=== PATIENT | female | born 1945 | race Caucasian/White ===

== ENCOUNTER 2017-10-05 11:50 | Outpatient (CLI) | payer MEDICARE ==
[2017-10-05 13:22] LABS: #Eosinphils 0.4 thou/uL (0.0-0.7); #Lymphocytes 1.6 thou/uL (1.20-3.40); #Monocytes 0.7 thou/uL (0.11-0.59); #Neutrophils 7.9 thou/uL (1.40-6.50); %Basophils 0.3 % (0.0-1.0); %Eosinophils 3.9 % (0.0-10.0); %Lymphocytes 15.3 % (21.0-51.0); %Monocytes 6.1 % (0.0-10.0); %Neutrophils 74.4 % (42.0-75.0); Hemoglobin 11.6 g/dL (12.0-16.0); Mean Corpuscular HGB CONC 31.8 g/dL (32.0-36.0); Mean Corpuscular Hemoglobin 27.2 pg (27.0-31.0); Mean Corpuscular Volume 85.3 fl (81.0-99.0); Mean Platelet Volume 7.7 fL (7.4-10.4); Platelet Count 391 thou/uL (130-400); RBC Distribution Width 15.2 % (11.5-14.5); Red Blood Cell (RBC) Count 4.29 mill/uL (4.20-5.40); White Blood Cell (WBC) Count 10.6 thou/uL (4.8-10.8)
[2017-10-05 13:43] LABS: Anion Gap 14 mmol/L (10-20); BUN (Urea Nitrogen) 26 mg/dL (9.8-20.1); Calc. Creatinine Clearance 0 mL/min (70-130); Calcium 8.6 mg/dL (7.8-10.44); Carbon Dioxide 27 mmol/L (23-31); Chloride 100 mmol/L (98-107); Estimated GFR-MDRD 32; Glucose 216 mg/dL (83-110); Potassium 4.2 mmol/L (3.5-5.1); Sodium 137 mmol/L (136-145)
--- NOTE | 2017-10-05 14:08 | RAD ---
CHEST PA AND LATERAL: HISTORY: A 72-year-old female for preoperative evaluation. FINDINGS: There is some anterior right hemidiaphragm elevation. Healed right rib fractures. Mild linear stran ding in the lung bases which does not appear significantly changed from a prior CT angio chest . IMPRESSION: Mild stranding in the lung bases. Healed right rib fractures. No confluent pneumonia, overt edema, pleural effusion, or other acute process. POS: CHARISSE
== END 2017-10-05 11:51 | disposition home or self-care (01) ==
LOC: LABBT 11:50
PROVIDERS: ATTEND Specialist
DX: Z01.818 Encounter for other preprocedural examination (principal); Z01.810 Encounter for preprocedural cardiovascular examination; Z01.812 Encounter for preprocedural laboratory examination; C50.911 Malignant neoplasm of unspecified site of right female breast
CPT/HCPCS: 71046; 80048; 85025; 93005; 93010

== ENCOUNTER 2017-10-09 07:13 | Day surgery (SDC) | payer MEDICARE, OTHER ==
[2017-10-05 11:57] VITALS: BMI 40.6
--- NOTE | 2017-10-09 09:45 | NM ---
RIGHT BREAST LYMPHOSCINTIGRAPHY: Date: 10/09/17 HISTORY: Malignant neoplasm of unspecified site of right female breast. FINDINGS: Right breast lymphoscintigraphy was performed following the right periareolar injection of 400 microc uries technetium-99m filtered sulfur colloid in divided doses. Focally increased uptake is seen in the right axillary lymph node. No tracer visualization is noted i n the internal mammary or axillary lymph nodes. IMPRESSION: Spivey lymph node in the right axilla. POS: CODI
[2017-10-09] MEDS ORDERED: CEFAZOLIN/Water 2 GM/20 ML SYRINGE ONE (11:54)
[2017-10-09] MEDS ORDERED: Fentanyl 100 MCG/2 ML VIAL ONE (14:02)
[2017-10-09] MEDS ORDERED: Isosulfan Blue 50 MG/5 ML VIAL ONE (14:08)
[2017-10-09] MEDS ORDERED: Bupivacaine 0.25% HCL 30 ML VIAL ONE (14:08)
[2017-10-09] MEDS ORDERED: Lidocaine 2% w/Epinephrine 1:200K 20 ML VIAL ONE (14:14)
[2017-10-09] MEDS ORDERED: PHENYLEPHRINE-NS 100 MCG/ML 10 ML SYRINGE ONE ×2 (15:58→16:21)
[2017-10-09] MEDS ORDERED: Ondansetron HCl/PF 4 MG/2 ML Vial ONE (16:21)
[2017-10-09] MEDS ORDERED: ePHEDrine/0.9% NaCl/PF SYRINGE 50 mg/10 ml ONE (16:21)
[2017-10-09] MEDS ORDERED: Dexamethasone 20 MG/5 ML VIAL ONE (16:21)
[2017-10-09] MEDS ORDERED: PROPOFOL 200 MG/20 ML VIAL ONE (16:21)
[2017-10-09] MEDS ORDERED: Lidocaine 1% PF 5 ML VIAL ONE (16:21)
--- NOTE | 2017-10-10 10:17 | MMO ---
SPECIMEN RADIOGRAPH: HISTORY: A 72-year-old female with a right breast mass. There is a breast specimen with a hook wire in place. There is a spiculated-appearing mass within the specimen. There is also a small post biopsy clip w ithin the specimen. IMPRESSION: Specimen contains a spiculated mass, hooked wire, and a previously placed localization device. POS: CODI
--- NOTE | 2017-10-10 12:55 | OP ---
DATE OF PROCEDURE: 10/09/2017 PREOPERATIVE DIAGNOSIS: Right breast cancer. POSTOPERATIVE DIAGNOSIS: Right breast cancer. OPERATION PERFORMED: Ultrasound guided localizing needle placement, needle localized right breast nevin mpectomy, right axillary sentinel lymph node mapping, right axillary sentinel lymph node biopsy. SURGEON: Dr. Sharath Landaverde. ANESTHESIA: General endotracheal. INDICATIONS: The patient is a 72-year-old white female. Recent imaging studies revealed a dominant mass in her upper right breast. This was biopsy proven, to be invasive ductal carcinoma. She is john en to the operating room at this time for lumpectomy with sentinel lymph node biopsy. Lymphoscintigr aphy was obtained preoperatively identifying sentinel lymph nodes within the right axilla. DESCRIPTION OF OPERATION: Informed consent was obtained. The patient was taken to the operating destiney m where general endotracheal anesthesia was obtained with the patient in the supine position. The br east was infiltrated with 3 mL of isosulfan blue in the periareolar subdermal tissue and the area was massaged for five minutes. The breast was then prepped with ChloraPrep and draped in sterile fashio n to include the axilla. Attention was turned first to the axilla. Local anesthetic was infiltrated using 0.25% Marcaine with epinephrine and a transverse low axillary incision was created. Dissection was carried through skin and subcutaneous tissue. Superficial axillary fascia was incised. Neoprobe was utilized to help id entify areas of maximum radio intensity. Blue dye was seen entering the axilla as well. I was able to clearly identify 3 separate sentinel lymph nodes, each of which had substantial radioactivity and some degree of blue dye. These were each dissected and all investing lymphatics divided between clam ps and 3-0 silk ties. Hemostasis was meticulous. The wound was closed in layers with 3-0 and 4-0 Mo nocryl and Dermabond was placed externally. Attention was then turned to the breast. Ultrasound was utilized to localize the obvious breast canc er in the upper right breast. The location of the malignancy was mapped on the overlying skin. Need le localization was then performed using the Kopans wire. The wire was passed through the lesion in a medial to lateral fashion. Additional local anesthetic was infiltrated and a transverse incision was created on the breast immed iately overlying the malignancy and to include the localizing wire entry site. Dissection was jyoti d through skin and subcutaneous tissue and was carried over a centimeter down into the breast. The m alignancy was recognized to be relatively deep within the breast. I then raised flaps medially, supe riorly, and inferiorly. I dissected down medial to the lesion based upon the needle entry site and andreia gallegos carried the plane posterior to the malignancy. I obtained a wide margin of normal tissue around the malignancy. The specimen was then removed from the breast and oriented with localizing sutures. Specimen mammography was obtained. This revealed that the obvious malignancy appeared to have a rim of appropriate tissue around it. The biopsy clip was within the specimen as well. Meticulous hemostasis was obtained within the wound. It was closed in layers with 3-0 and 4-0 Monocr yl suture. Additional local anesthetic was infiltrated during closure. Dermabond was placed externa lly. There were no complications. Patient tolerated the procedure well and was taken to recovery ro in stable condition.
== END 2017-10-09 18:05 | disposition home or self-care (01) ==
LOC: SDC 07:13
PROVIDERS: ATTEND Specialist
PROC: 0HBT0ZZ Excision of Right Breast, Open Approach (ICD-10-PCS; principal; 2017-10-09)
PROC: 07B50ZX Excision of Right Axillary Lymphatic, Open Approach, Diagnostic (ICD-10-PCS; 2017-10-09)
DX: C50.811 Malignant neoplasm of overlapping sites of right female breast (principal); E78.5 Hyperlipidemia, unspecified; I25.10 Atherosclerotic heart disease of native coronary artery without angina pectoris; E78.00 Pure hypercholesterolemia, unspecified; K21.9 Gastro-esophageal reflux disease without esophagitis; J44.9 Chronic obstructive pulmonary disease, unspecified; G47.33 Obstructive sleep apnea (adult) (pediatric); I12.9 Hypertensive chronic kidney disease with stage 1 through stage 4 chronic kidney disease, or unspecified chronic kidney disease; E11.22 Type 2 diabetes mellitus with diabetic chronic kidney disease; N18.9 Chronic kidney disease, unspecified; E66.9 Obesity, unspecified; Z68.41 Body mass index [BMI] 40.0-44.9, adult; Z17.0 Estrogen receptor positive status [ER+]; Z82.49 Family history of ischemic heart disease and other diseases of the circulatory system; Z88.2 Allergy status to sulfonamides; Z88.8 Allergy status to other drugs, medicaments and biological substances; Z91.018 Allergy to other foods; Z79.82 Long term (current) use of aspirin; Z79.02 Long term (current) use of antithrombotics/antiplatelets; Z79.4 Long term (current) use of insulin; Z79.899 Other long term (current) drug therapy; Z95.5 Presence of coronary angioplasty implant and graft; Z90.49 Acquired absence of other specified parts of digestive tract; Z90.710 Acquired absence of both cervix and uterus; Z90.722 Acquired absence of ovaries, bilateral; Z98.41 Cataract extraction status, right eye; Z98.890 Other specified postprocedural states
CPT/HCPCS: 19301; 38525; 76098; 78195; 82962; 88307; 88331; 88334; 88342; A9541; Q9968; 36416; J0131; J1100; J2001; J2370; J2405; J2704; J3010; J7050; S0020

== ENCOUNTER 2018-01-07 09:55 | Outpatient (CLI) | payer MEDICARE | END 2018-01-07 09:56 | disposition home or self-care (01) | LOC: BICMAMMO 09:55 | PROVIDERS: ATTEND Internal Medicine Hematology & Oncology | DX: Z13.820 Encounter for screening for osteoporosis (principal); Z78.0 Asymptomatic menopausal state | CPT/HCPCS: 77080 ==

== ENCOUNTER 2018-11-12 09:00 | Outpatient (CLI) | payer MEDICARE ==
--- NOTE | 2018-11-13 15:32 | MMO ---
MAMMO Bilat Diag DDI+BRI. CLINICAL HISTORY: Patient is 73 years old and is seen for diagnostic exam. The patient has the following family history of breast cancer: sister. The patient has a history of malignant (generic) in the right breast in 2017. The patient has a history of right Lumpectomy in 2017 - malignant - REMOVED 3 LYMPH NODES. VIEWS: The views performed were: bilateral craniocaudal with tomosynthesis; bilateral mediolateral oblique with tomosynthesis; and bilateral mediolateral. FILMS COMPARED: The present examination has been compared to a prior imaging study performed at MAMMOGRAM FINDINGS: There are scattered fibroglandular densities. Finding 1: Benign calcifications are noted bilaterally. No suspicious calcifications or masses are seen. Finding 2: There is a post-surgical scar seen in the right breast. IMPRESSION: ALL ABOVE FINDINGS ARE BENIGN. A ROUTINE FOLLOW-UP MAMMOGRAM IN 1 YEAR IS RECOMMENDED. THE RESULTS OF THIS EXAM WERE SENT TO THE PATIENT. ACR BI-RADS Category 2 - Benign finding MAMMOGRAPHY NOTE: 1. A negative mammogram report should not delay a biopsy if a dominant of clinically suspicious mass is present. 2. Approximately 10% to 15% of breast cancers are not detected by mammography. 3. Adenosis and dense breasts may obscure an underlying neoplasm.
== END 2018-11-12 09:01 | disposition home or self-care (01) ==
LOC: BICMAMMO 09:00
PROVIDERS: ATTEND Internal Medicine Hematology & Oncology
DX: Z08 Encounter for follow-up examination after completed treatment for malignant neoplasm (principal)
CPT/HCPCS: 77066; G0279

== ENCOUNTER 2019-08-14 12:52 | Inpatient (IN) | payer MEDICARE ==
[2019-08-14 16:29] VITALS: BMI 39.5
[2019-08-14 17:47] LABS: Troponin I 0.028 ng/mL (< 0.028)
--- NOTE | 2019-08-14 18:15 | PDOC.HHP ---
Hospitalist HPI - History of Present Illness back pain History of Present Illness: This is a 74 year old female with past medical history of breast cancer s/p lumpectomy and axillary lymph node dissection few years ago on letrazole, hypertension, diabetes, CAD s/p 3 stents who presented to the emergency room with back pain. The patient states on Sunday she was getting out of her truck and after supper started experiencing a sharp pain in her back. It proceeded to get worst over the past few days and was making her short of breath from the severe pain so she came to the hospital. Her pain is relieved with laying on her right side and worsened with laying on her back or on her left side. No association with walking. SHe says over the past few months she has been having tingling in her hands and her legs whenever she bends in certain positions. She denies chest pain, diaphoresis, fevers, chills, runny nose, sore throat, sick contacts, recent travel history. The patient states that she took a few aspirin at home without relief. She has never smoked. She has three stents in her heart, says her last stress test a few years ago was normal. ED Course: Upon arrival to the ER, the patient had a BP of 184/88. Temp was 98.5, oxygen saturation was normal, HR 86. The patient had a CTA chest done which showed no pneumonia and no PE. The patient was given nitro patch and aspirin 324. She states it helped some but the pain is now starting to come back again. She reports compliance with all of her medications. BP down to 140 this morning. Hospitalist ROS - Review of Systems Constitutional: denies: fever, chills ENT: denies: ear discharge, mouth pain Respiratory: denies: cough, dry Cardiovascular: denies: chest pain, palpitations Gastrointestinal: denies: nausea, vomiting, abdominal pain, diarrhea, constipation Genitourinary: denies: dysuria, frequency, incontinence, hematuria Musculoskeletal: reports: neck pain (mild) Skin: denies: rash, lesions, betty - Medication Medications: Aspirin 81 mg daily Letrazole Levemir 45 units SC qhs Novolog 12 units SC TID Lipitor 80 mg daily Plavix 75 mg daily Metoprolol 100 mg po bid Amlodipine 5 mg daily HCTZ 25 mg daily Metformin 500 mg bid Nexium 40 mg daily Hospitalist History - Past Medical History Cardiac: reports: CAD (s/p 3 stents), HTN Endocrine: reports: Diabetes Other Medical History: Breast Cancer in remission - Past Surgical History Other Surgical History: s/p lumpectomy and axillary lymph node dissection in 2015 Cataract surgery Hysterectomy cholecystectomy - Family History Other Family History: Sister had cancer Father had diabetes Mother had hypertension - Social History Smoking Status: Never smoker Alcohol: reports: None Drugs: reports: none Living Situation: Alone - Exam General Appearance: NAD, awake alert Eye: PERRL, anicteric sclera ENT: normocephalic atraumatic, no oropharyngeal lesions Neck: supple, symmetric, no JVD, no thyromegaly Heart: RRR, no murmur, no gallops, no rubs Respiratory: CTAB, no wheezes, no rales, no ronchi Gastrointestinal: soft, non-tender, non-distended, normal bowel sounds, no palpable masses, no hepatomegaly, no splenomegaly, no bruit Extremities: no cyanosis, no clubbing, no edema Skin: normal turgor, no lesions, no rashes Neurological: cranial nerve grossly intact, normal sensation to touch, no focal deficits, no new deficit Musculoskeletal: normal tone, normal strength, no muscle wasting Musculoskeletal - other findings: spinal tenderness in thoracic spine Psychiatric: normal affect, normal behavior, A&O x 3, oriented to person Hospitalist Results - Labs Lab results: Troponin I 0.028 ng/mL (< 0.028) 08/14/19 17:09 - EKG Interpretation EKG: Normal sinus rhythm Nonspecific T wave abnormality Hospitalist H&P A/P - Plan Plan: This is a 74 year old female with a past medical history of CAD s/p 3 stents, breast cancer s/p lumpectomy, type II diabetes, hypertension, who presented to the emergency room with worsening back pain Back pain - EKG showed normal sinus rhythm, troponin negative x 2 , check one more. Monitor on telemetry - will order lidocaine patch, tylenol prn . CTA negative for PE - check MRI cervical, thoracic, lumbar spine given history of breast cancer - PT evaluation Leukocytosis - WBC of 14.3, CTA negative for PE - check UA - check MRI of spine Hypertensive urgency - BP 180 - continue amlodipine, HCTZ, imdur - may be from pain CAD s/p 3 stents - continue aspirin, plavix, ranexa, imdur 30 mg daily Breast cancer s/p lumpectomy and radiation - continue letrazole Type II diabetes - sliding scale insulin - diabetic diet - hold metformin for now GERD - continue nexium CKD - creatinine 1.3, at baseline Anemia - Hb 11, will recheck CBC tomorrow DVT prophylaxis: Code status: undecided but full code for now
[2019-08-14] MEDS ORDERED: Dextrose 5% in Water 1,000 ML IV PRN (18:29)
[2019-08-14] MEDS ORDERED: Dextrose 50% Abboject 50 ML SYRINGE SLOW IVP PRN (18:29)
[2019-08-14] MEDS ORDERED: Nitroglycerin 0.4 MG TAB (25 Tab Bottle) SL SCH (18:30)
[2019-08-14] MEDS: Lidocaine 5% Patch TD SCH (18:43)
[2019-08-14 19:54] LABS: Bilirubin Negative (Negative); Blood, Urine Trace (Negative); Clarity Clear (Clear); Glucose, Urine (Dipstick) Normal (Negative); Leukocyte Negative Leu/uL (Negative); Nitrite Negative (Negative); Protein, Urine (Dipstick) 300 mg/dL (Neg-Trace); Urobilinogen Normal mg/dL (Less than 2)
[2019-08-14] MEDS: Insulin Glargine 45 UNITS in Pre-Filled Syringe 1 EACH SC SCH (20:14)
[2019-08-14] MEDS: Atorvastatin Calcium 40 MG TAB PO SCH (20:17)
[2019-08-14] MEDS: Metoprolol Tartrate 100 MG TAB PO SCH (20:17)
[2019-08-14 20:26] LABS: Troponin I 0.031 ng/mL (< 0.028)
[2019-08-14] MEDS ORDERED: Melatonin 3 MG TAB PO PRN (20:27)
[2019-08-14] MEDS ORDERED: Mag-Al 1200 mg/1200 mg/30 ML UDCUP PO PRN (20:36)
[2019-08-14] MEDS ORDERED: Non-Formulary Item 1 EACH (Insulin Detemir 100 Units/Ml [Levemir] 45 UNIT) SQ SCH (21:00)
[2019-08-14] MEDS: traMADol HCl 50 MG TAB PO PRN (21:39)
[2019-08-15] MEDS: Acetaminophen 325 MG TAB PO PRN ×2 (00:10→19:53)
[2019-08-15] MEDS: Lidocaine Patch Removal TOP SCH (06:25)
[2019-08-15] MEDS: Aspirin 325 mg Enteric Coated Tablet PO SCH (08:52)
[2019-08-15] MEDS: traMADol HCl 50 MG TAB PO PRN ×2 (08:52→19:52)
[2019-08-15] MEDS: Clopidogrel Bisulfate 75 MG TAB PO SCH (08:53)
[2019-08-15] MEDS: Metoprolol Tartrate 100 MG TAB PO SCH ×2 (08:53→21:29)
[2019-08-15] MEDS: Isosorbide Mononitrate (ER) 30 MG TAB PO SCH (08:53)
[2019-08-15] MEDS: Amlodipine 5 MG TAB PO SCH (08:53)
[2019-08-15] MEDS ORDERED: Hydrochlorothiazide 25 MG TAB PO SCH (09:00)
--- NOTE | 2019-08-15 12:26 | CON ---
DATE OF CONSULTATION: HISTORY OF PRESENT ILLNESS: The patient is a 74-year-old woman with a history of coronary artery disease, who presents for evaluation of back discomfort. The patient has a long history of coronary artery disease. She has previously undergone PTCA and stent placed in the LAD. The patient underwent a repeat cardiac catheterization in September of 2012. She was found to have moderate CAD with 60 % restenoses. She also had diffuse coronary artery disease. The patient has subsequently been on medical therapy. She has been doing well until three days prior to admission, developed severe onset of back discomfort that radiated to her right lower ribs. The patient states that the chest and back pain has been persistent. It is clearly worse when she lies on her side. The patient states that the pain is improved by sitting up. The patient states that she took several pain medications without relief and presented to the emergency room. The patient denied having any chest discomfort. The patient reports being dyspneic. PAST MEDICAL HISTORY: 1. Coronary artery disease. 2. Diabetes mellitus. 3. Hypertension. 4. Dyslipidemia. 5. GE reflux. 6. COPD. PAST SURGICAL HISTORY: Cholecystectomy, hysterectomy, and cataract surgery. FAMILY HISTORY: There is a strong family history of coronary artery disease. ALLERGIES: SULFA AND PROMETHAZINE. SOCIAL HISTORY: Nonsmoker. REVIEW OF SYSTEMS: Ten-point system otherwise unremarkable. PHYSICAL EXAMINATION: GENERAL: This is an obese woman, in mild distress. VITAL SIGNS: Blood pressure 132/58. NECK: No jugular venous distention. LUNGS: Clear to auscultation. HEART: Regular rate and rhythm. Normal S1 and S2. ABDOMEN: Distended. EXTREMITIES: Show no edema. VASCULAR: Radial pulses are 2+. LABORATORY DATA: white blood cell count is 14.3, hemoglobin 11.8, hematocrit 39.5, and platelets are 407. Sodium was 135, potassium 3.9, chloride 96, bicarbonate 27, BUN 19, creatinine 1.3, and glucose 129. BNP is 185. Troponin 0.031. IMAGING DATA: EKG normal sinus rhythm, nonspecific T-wave abnormality. IMPRESSION: 1. Back pain. 2. History of percutaneous transluminal coronary angioplasty and stent placed to the left anterior descending artery. 3. Diabetes mellitus. 4. Hypertension. 5. Dyslipidemia. PLAN: This patient presents with back discomfort. She has had persistent pain for the past 3 days. There is no evidence of myocardial infarction. The patient is to undergo an MRI scan of her back. We will follow this patient with you. Further recommendation to follow. Job ID: [id number] MTDD
--- NOTE | 2019-08-15 13:52 | CT ---
CT CERVICAL SPINE: Axial tomograms were obtained with multiplanar reconstruction. INDICATION: Neck pain. Upper extremity radiculopathy. History of breast cancer. FINDINGS: The cervical vertebrae maintain height and alignment. Moderate degenerative changes are noted. Ther e is also disk space at C5-6, C6-7, and C7-T1. Posterior spondylosis is prominent at C4-5, C5-6, and C6-7. Anterior osteophytes are prominent at these levels. No evidence of acute fracture. At C2-3, mild disk bulge flattens the anterior thecal sac. At C3-4, disk bulge and spondylosis efface the anterior subarachnoid space. Mild left foraminal encr oachment due to hypertrophic change. At C4-5, prominent posterior spondylosis impinges on and mildly compresses the anterior cord. At C5-6, posterior disk bulge and spondylosis mildly impinge on the anterior cord. Bilateral foramin al narrowing due to hypertrophic change. At C6-7, spondylitic changes abut the anterior cord. Bilateral foraminal stenosis due to facet and uncinate hypertrophy. IMPRESSION: There are degenerative changes of the cervical spine as described. POS: C
--- NOTE | 2019-08-15 13:54 | CT ---
CT THORACIC SPINE: Date: 08/15/19 INDICATION: Back pain. History of breast cancer. FINDINGS: Thoracic vertebra maintain height and alignment. Moderate degenerative changes are noted with anterio r and lateral osteophytes throughout. There are lateral bridging osteophytes in the mid and lower tho racic spine. No evidence of acute compression deformity. No lytic or blastic process identified. No e vidence of disc protrusion. Thoracic spinal canal is suboptimally evaluated on CT. There is no eviden ce of central canal stenosis. There is facet hypertrophy at several levels which does appear to produ ce some foraminal encroachment on the right at T5-6 and bilaterally at T6-T7, T7-T8, and T8-T9. IMPRESSION: There are moderate degenerative changes of the thoracic spine as described. POS: C
--- NOTE | 2019-08-15 14:08 | CT ---
CT LUMBAR SPINE WITHOUT CONTRAST: Date: 08/15/19 INDICATION: Back pain. Radiculopathy. History of breast cancer. FINDINGS: The lumbar vertebra maintain height and alignment. No compression deformity. No lytic or blastic proc ess. There are moderate degenerative changes with hypertrophic spurring and posterior facet hypertrophy. T he disc spaces are preserved. At L1-2, broad based disc bulge flattens the thecal sac. Mild central canal stenosis. At L2-3, diffuse disc bulge flattens the thecal sac. Mild central canal stenosis. At L3-4, there is mild diffuse disc bulge. Facet and ligamentous hypertrophy. Mild central canal sten osis. At L4-5, broad based disc bulge with calcification along the posterior disc margin. Very pronounced f acet hypertrophy. The changes result in moderate to severe central canal stenosis and bilateral jemma inal stenosis. The foraminal stenosis is more severe on the right due to the diffuse disc bulge and f acet hypertrophy. At L5-S1, significant facet hypertrophy. Mild disc bulge. No significant central canal stenosis; aguirre kamala, mild bilateral foraminal stenosis secondary to the hypertrophic change. IMPRESSION: Moderate to severe degenerative changes. Severe facet hypertrophy is seen at L4-5 and L5-S1 as descri bed above. POS: C
[2019-08-15] MEDS: Letrozole 2.5 MG TAB PO SCH (16:00)
[2019-08-15] MEDS ORDERED: Gabapentin 100 MG CAP PO SCH (16:30)
[2019-08-15 17:05] LABS: Hemoglobin 10.9 g/dL (12.0-16.0); Mean Corpuscular HGB CONC 33.3 g/dL (32.0-36.0); Mean Corpuscular Hemoglobin 28.1 pg (27.0-31.0); Mean Corpuscular Volume 84.5 fL (78.0-98.0); Mean Platelet Volume 7.2 fL (7.4-10.4); Platelet Count 343 thou/uL (130-400); Red Blood Cell (RBC) Count 3.88 mill/uL (4.20-5.40); White Blood Cell (WBC) Count 15.7 thou/uL (4.8-10.8)
--- NOTE | 2019-08-15 17:29 | PDOC.HOSPP ---
- Subjective Encounter Date: 08/15/19 Encounter Time: 11:00 Subjective: THe patient went down for MRI and was unable to due to back pain and extreme claustrophobic. NEver wants to go in that machine again. Agreeable to CT scan however. . SHe says tramadol relieves her pain, lidocaine patch helped. SHe walkeed with PT and was discharged from PT. THe patient denies cough. States she is SOB walking which is chronic. - Objective Vital Signs & Weight: Vital Signs (12 hours) Temp Pulse Pulse Pulse Resp BP BP 08/15/19 15:29 98.2 F 68 20 08/15/19 12:00 63 64 157/83 H 185/73 H 08/15/19 11:41 98.5 F 64 20 08/15/19 07:06 98.6 F 70 24 H BP Pulse Ox 08/15/19 15:29 156/68 H 92 L 08/15/19 12:00 08/15/19 11:41 146/61 H 92 L 08/15/19 07:06 132/58 L 94 L Weight Weight 216 lb 1.6 oz I&O: 08/14/19 08/15/19 08/16/19 06:59 06:59 06:59 Intake Total 1200 720 Output Total 750 250 Balance 450 470 Result Diagrams: 08/15/19 16:56 Additional Labs: Accuchecks 08/15/19 08/15/19 08/15/19 16:40 11:47 06:26 POC Glucose 250 H 242 H 165 H 08/14/19 20:17 POC Glucose 242 H Hospitalist ROS - Review of Systems Constitutional: denies: fever, chills - Medication Medications: Active Medications Generic Name Dose Route Start Last Admin Trade Name Freq PRN Reason Stop Dose Admin Acetaminophen 325 mg 08/14/19 18:26 08/15/19 00:10 Tylenol PO 325 mg Q6H PRN Administration Headache/Fever/MILD Pain 1-3 Al Hydroxide/Mg Hydroxide 30 ml 08/14/19 20:36 08/14/19 20:56 Maalox PO 30 ml Q6H PRN Administration GI Upset Amlodipine Besylate 5 mg 08/15/19 09:00 08/15/19 08:53 Norvasc PO 5 mg DAILY LIOR Administration Aspirin 325 mg 08/15/19 09:00 08/15/19 08:52 Ecotrin PO 325 mg DAILY LIOR Administration Atorvastatin Calcium 80 mg 08/14/19 21:00 08/14/19 20:17 Lipitor PO 80 mg HS LIOR Administration Clopidogrel Bisulfate 75 mg 08/15/19 09:00 08/15/19 08:53 Plavix PO 75 mg DAILY LIOR Administration Hydrochlorothiazide 25 mg 08/15/19 09:00 08/15/19 08:53 Hydrochlorothiazide PO 25 mg DAILY LIOR Administration Insulin Glargine 45 units/ 0.45 mls @ 0 mls/hr 08/14/19 21:00 08/14/19 20:14 Miscellaneous Medication SC 0.45 mls HS LIOR Administration Isosorbide Mononitrate 30 mg 08/15/19 09:00 08/15/19 08:53 Imdur Er PO 30 mg DAILY LIOR Administration Lidocaine 1 patch 08/14/19 18:30 08/14/19 18:43 Lidoderm 5% Patch TD 1 patch Q24HR LIOR Administration Melatonin 3 mg 08/14/19 20:27 08/14/19 21:39 Melatonin PO 3 mg HS PRN Administration Insomnia Metoprolol Tartrate 100 mg 08/14/19 21:00 08/15/19 08:53 Lopressor PO 100 mg BID LIOR Administration Miscellaneous Medication 1 each 08/15/19 06:30 08/15/19 06:25 Lidocaine Patch Removal TOP Not Given 0630 [facility] Pantoprazole Sodium 40 mg 08/15/19 09:00 08/15/19 08:53 Protonix PO 40 mg DAILY LIOR Administration Ranolazine 500 mg 08/14/19 21:00 08/15/19 08:53 Ranexa PO 500 mg BID LIOR Administration Tramadol HCl 50 mg 08/14/19 20:27 08/15/19 08:52 Ultram PO 50 mg Q6H PRN Administration Moderate Pain (4-6) - Exam General Appearance: NAD, awake alert Eye: PERRL, anicteric sclera ENT: normocephalic atraumatic, no oropharyngeal lesions Neck: supple, symmetric, no JVD, no thyromegaly Heart: RRR, no murmur, no gallops, no rubs, diminshed peripheral pulses Respiratory: CTAB, no wheezes, no rales, no ronchi Gastrointestinal: soft, non-tender, non-distended, normal bowel sounds Extremities: no cyanosis, no clubbing, no edema Skin: normal turgor, no lesions, no rashes Neurological: cranial nerve grossly intact, no focal deficits, no new deficit Musculoskeletal - other findings: tenderness in thoracic spine in the back Hosp A/P - Plan CTA chest: no PE, consolidation vs atelectasis in RML. Fatty liver. Kidney cyst This is a 74 year old female with a past medical history of CAD s/p 3 stents, breast cancer s/p lumpectomy, type II diabetes, hypertension, who presented to the emergency room with worsening back pain Back pain - possibly degenerative disc disease vs muscle strain vs pneumonia? - EKG showed normal sinus rhythm, CT thoracic, lumbar and cervical spine show degenerative disc disease - CTA showed no PE, but possible consolidation in RML. WBC has increased to 15, will start augmentin empirically - continue lidocaine patch, tramadol prn, will try gabapentin - troponin mildly positive at 0.031, then downtrended, cards consulted do not think this is cardiac - PT evaluated and discharged patient Leukocytosis - possibly pneumonia - WBC of 14.3, CTA showed possible consolidation RML, WBC increasing to 15, will try a ugmentin -UA negative for infection Acute Kidney Injury - creatinine increased from 1.3 to 2.48 - will hydrate with IV fluids, possibly from contrast nephropathy - check renal ultrasound Hyponatremia -sodium dropped to 129 - will hydrate with IV fluids - d/c HCTZ Hypertensive urgency - BP 130-150 - continue amlodipine, HCTZ, imdur CAD s/p 3 stents - continue aspirin, plavix, ranexa, imdur 30 mg daily Breast cancer s/p lumpectomy and radiation - continue letrazole Type II diabetes - sliding scale insulin - diabetic diet - hold metformin for now GERD - continue nexium Anemia - Hb 12, check B12 and folate tomorrow Code status: full code
[2019-08-15] MEDS ORDERED: Amoxicillin/Potassium Clav 875 MG TAB PO SCH (17:30)
[2019-08-15 17:34] LABS: Anion Gap 11 mmol/L (10-20); BUN (Urea Nitrogen) 33 mg/dL (9.8-20.1); Calc. Creatinine Clearance 31 mL/min (70-130); Calcium 8.9 mg/dL (7.8-10.44); Carbon Dioxide 32 mmol/L (23-31); Chloride 91 mmol/L (98-107); Estimated GFR-MDRD 19; Glucose 237 mg/dL (83-110); Potassium 4.5 mmol/L (3.5-5.1); Sodium 129 mmol/L (136-145)
[2019-08-15] MEDS: Lidocaine 5% Patch TD SCH (18:09)
[2019-08-15] MEDS: Sodium Chloride 0.9% 1,000 ML IV SCH (18:15)
--- NOTE | 2019-08-15 18:27 | ULT ---
EXAM: BILATERAL RENAL ULTRASOUND COMPLETE: 08/15/19 HISTORY: Elevated creatinine. FINDINGS: Right kidney measures 9.9 x 6.0 x 6.1 cm. Left kidney measures 10.7 x 4.9 x 4.7 cm. There is no evide nce for renal hydronephrosis. 1.5 x 1.8 cm left renal cyst. Possible mild increased cortical echogeni city, nonspecific. Urinary bladder appears unremarkable. IMPRESSION: No renal hydronephrosis. Small left renal cyst. POS: RRE
[2019-08-15] MEDS: Insulin Glargine 45 UNITS in Pre-Filled Syringe 1 EACH SC SCH (21:28)
[2019-08-15] MEDS: Atorvastatin Calcium 40 MG TAB PO SCH (21:29)
[2019-08-16] MEDS: traMADol HCl 50 MG TAB PO PRN ×3 (03:00→18:06)
[2019-08-16] MEDS: Acetaminophen 325 MG TAB PO PRN (03:00)
[2019-08-16 05:27] LABS: Hemoglobin 10.5 g/dL (12.0-16.0); Mean Corpuscular HGB CONC 33.4 g/dL (32.0-36.0); Mean Corpuscular Hemoglobin 28.2 pg (27.0-31.0); Mean Corpuscular Volume 84.4 fL (78.0-98.0); Mean Platelet Volume 7.2 fL (7.4-10.4); Platelet Count 335 thou/uL (130-400); RBC Distribution Width 13.9 % (11.5-14.5); Red Blood Cell (RBC) Count 3.71 mill/uL (4.20-5.40); White Blood Cell (WBC) Count 17.6 thou/uL (4.8-10.8)
[2019-08-16 06:01] LABS: ALT (SGPT) 8 U/L (8-55); AST (SGOT) 14 U/L (5-34); Albumin 3.5 g/dL (3.4-4.8); Alkaline Phosphatase 86 U/L (40-110); Anion Gap 13 mmol/L (10-20); BUN (Urea Nitrogen) 41 mg/dL (9.8-20.1); Bilirubin, Total 0.3 mg/dL (0.2-1.2); Calc. Creatinine Clearance 26 mL/min (70-130); Calcium 8.5 mg/dL (7.8-10.44); Carbon Dioxide 26 mmol/L (23-31); Chloride 91 mmol/L (98-107); Estimated GFR-MDRD 15; Globulin 3.2 g/dL (2.4-3.5); Glucose 193 mg/dL (83-110); Protein, Total 6.7 g/dL (6.0-8.3); Sodium 126 mmol/L (136-145)
[2019-08-16] MEDS: Lidocaine Patch Removal TOP SCH (06:08)
[2019-08-16] MEDS: HumaLOG 300 UNITS/3 ML VIAL SC PRN ×3 (06:08→18:01)
[2019-08-16] MEDS: Sodium Chloride 0.9% 1,000 ML IV SCH ×2 (09:15→23:33)
[2019-08-16] MEDS: Amoxicillin/Potassium Clav 875 MG TAB PO SCH ×2 (09:16→20:57)
[2019-08-16] MEDS: Clopidogrel Bisulfate 75 MG TAB PO SCH (09:16)
[2019-08-16] MEDS: Amlodipine 5 MG TAB PO SCH (09:16)
[2019-08-16] MEDS: Letrozole 2.5 MG TAB PO SCH (09:16)
[2019-08-16] MEDS: Isosorbide Mononitrate (ER) 30 MG TAB PO SCH (09:16)
[2019-08-16] MEDS: Aspirin 325 mg Enteric Coated Tablet PO SCH (09:16)
[2019-08-16] MEDS: Metoprolol Tartrate 100 MG TAB PO SCH ×2 (09:16→20:57)
--- NOTE | 2019-08-16 15:26 | PDOC.HOSPP ---
- Subjective Subjective: Continues to have some back and right knee pain. Some better. - Objective Vital Signs & Weight: Vital Signs (12 hours) Temp Pulse Resp BP BP Pulse Ox 08/16/19 11:09 98.2 F 66 18 169/74 H 92 L 08/16/19 08:59 98.6 F 87 18 187/81 H 92 L 08/16/19 03:50 71 18 172/73 H 95 Weight Weight 225 lb I&O: 08/15/19 08/16/19 08/17/19 06:59 06:59 06:59 Intake Total 1200 1440 Output Total 750 650 Balance 450 790 Result Diagrams: 08/16/19 05:14 08/16/19 05:14 Additional Labs: Accuchecks 08/16/19 08/16/19 08/15/19 10:39 06:07 21:14 POC Glucose 176 H 179 H 226 H 08/15/19 16:40 POC Glucose 250 H Hospitalist ROS - Medication Medications: Active Medications Generic Name Dose Route Start Last Admin Trade Name Jbq PRN Reason Stop Dose Admin Acetaminophen 325 mg 08/14/19 18:26 08/16/19 03:00 Tylenol PO 325 mg Q6H PRN Administration Headache/Fever/MILD Pain 1-3 Al Hydroxide/Mg Hydroxide 30 ml 08/14/19 20:36 08/14/19 20:56 Maalox PO 30 ml Q6H PRN Administration GI Upset Amlodipine Besylate 5 mg 08/15/19 09:00 08/16/19 09:16 Norvasc PO 5 mg DAILY LIOR Administration Amoxicillin/Clavulanate Potassium 875 mg 08/16/19 09:00 08/16/19 09:16 Augmentin PO 875 mg Q12HR LIOR Administration Aspirin 325 mg 08/15/19 09:00 08/16/19 09:16 Ecotrin PO 325 mg DAILY LIOR Administration Atorvastatin Calcium 80 mg 08/14/19 21:00 08/15/19 21:29 Lipitor PO 80 mg HS ILOR Administration Clopidogrel Bisulfate 75 mg 08/15/19 09:00 08/16/19 09:16 Plavix PO 75 mg DAILY LIOR Administration Insulin Glargine 45 units/ 0.45 mls @ 0 mls/hr 08/14/19 21:00 08/15/19 21:28 Miscellaneous Medication SC 0.45 mls HS LIOR Administration Sodium Chloride 1,000 mls @ 75 mls/hr 08/15/19 17:45 08/16/19 09:15 Normal Saline 0.9% IV 1,000 mls .[id number] LIOR Administration Insulin Human Lispro 0 units 08/14/19 18:29 08/16/19 11:12 Humalog SC 2 unit .MILD SLIDING SCALE PRN Administration Mild Correctional Scale Isosorbide Mononitrate 30 mg 08/15/19 09:00 08/16/19 09:16 Imdur Er PO 30 mg DAILY LIOR Administration Letrozole 2.5 mg 08/15/19 09:00 08/16/19 09:16 Femara PO 2.5 mg DAILY LIOR Administration Lidocaine 1 patch 08/14/19 18:30 08/15/19 18:09 Lidoderm 5% Patch TD 1 patch Q24HR LIOR Administration Melatonin 3 mg 08/14/19 20:27 08/14/19 21:39 Melatonin PO 3 mg HS PRN Administration Insomnia Metoprolol Tartrate 100 mg 08/14/19 21:00 08/16/19 09:16 Lopressor PO 100 mg BID LIOR Administration Miscellaneous Medication 1 each 08/15/19 06:30 08/16/19 06:08 Lidocaine Patch Removal TOP Not Given 0630 [facility] Pantoprazole Sodium 40 mg 08/15/19 09:00 08/16/19 09:16 Protonix PO 40 mg DAILY LIOR Administration Ranolazine 500 mg 08/14/19 21:00 08/16/19 09:16 Ranexa PO 500 mg BID LIOR Administration Tramadol HCl 50 mg 08/14/19 20:27 08/16/19 09:21 Ultram PO 50 mg Q6H PRN Administration Moderate Pain (4-6) - Exam General Appearance: NAD, awake alert General - other findings: Obese Heart: RRR, no murmur, no gallops, no rubs, normal peripheral pulses Respiratory: CTAB, no wheezes, no rales, no ronchi, normal chest expansion, no tachypnea, normal percussion Gastrointestinal: soft, non-tender, non-distended, normal bowel sounds, no palpable masses, no hepatomegaly, no splenomegaly, no bruit Extremities: no cyanosis, no clubbing, no edema Extremities - other findings: Osteoarthropathy of the right knee. No effusion. Musculoskeletal: normal tone, normal strength, no muscle wasting Psychiatric: normal affect, normal behavior, A&O x 3 Hosp A/P (1) Back pain Code(s): M54.9 - DORSALGIA, UNSPECIFIED Status: Acute (2) DJD (degenerative joint disease) of cervical spine Code(s): M47.812 - SPONDYLOSIS W/O MYELOPATHY OR RADICULOPATHY, CERVICAL REGION Status: Acute (3) DJD (degenerative joint disease) of thoracic spine Code(s): M47.814 - SPONDYLOSIS W/O MYELOPATHY OR RADICULOPATHY, THORACIC REGION Status: Acute (4) Degenerative joint disease (DJD) of lumbar spine Code(s): M47.816 - SPONDYLOSIS W/O MYELOPATHY OR RADICULOPATHY, LUMBAR REGION Status: Acute (5) MELONIE (acute kidney injury) Code(s): N17.9 - ACUTE KIDNEY FAILURE, UNSPECIFIED Status: Acute (6) Hyponatremia Code(s): E87.1 - HYPO-OSMOLALITY AND HYPONATREMIA Status: Acute (7) Chest pain Code(s): R07.9 - CHEST PAIN, UNSPECIFIED Status: Acute (8) CAD (coronary artery disease) Code(s): I25.10 - ATHSCL HEART DISEASE OF [place] CORONARY ARTERY W/O ANG PCTRS Status: Acute (9) Hypertensive urgency Code(s): I16.0 - HYPERTENSIVE URGENCY Status: Acute (10) Breast cancer Status: Acute (11) Diabetes mellitus Code(s): E11.9 - TYPE 2 DIABETES MELLITUS WITHOUT COMPLICATIONS Status: Acute (12) GERD (gastroesophageal reflux disease) Code(s): K21.9 - GASTRO-ESOPHAGEAL REFLUX DISEASE WITHOUT ESOPHAGITIS Status: Acute (13) Anemia Code(s): D64.9 - ANEMIA, UNSPECIFIED Status: Acute (14) CKD (chronic kidney disease), stage III Code(s): N18.3 - CHRONIC KIDNEY DISEASE, STAGE 3 (MODERATE) Status: Acute (15) Right knee DJD Code(s): M17.11 - UNILATERAL PRIMARY OSTEOARTHRITIS, RIGHT KNEE Status: Acute (16) HLD (hyperlipidemia) Code(s): E78.5 - HYPERLIPIDEMIA, UNSPECIFIED Status: Acute - Plan Chest/back pain: appear to be related to DJD. Continue lidocaine, current meds. MELONIE on CKD III: Primary issue now is the worsening renal function. May be an acute hypertensive nephropathy on CKD III. On some IVF. Consult Nephrology. Hyponatremia: Hyponatremia appears to be related to the nephropathy. Appreciate nephrology input. Hypertensive urgency: BP improved, but still high. Continue Amlodipine and Metoprolol. Diabetes: Adequate control. Holding metformin with current GFR. Accuchecks and SSI. HLD: Continue home statin. CAD: Continue ASA, statin. Continue Ranexa Breast cancer: Continue Letrozole
--- NOTE | 2019-08-16 17:16 | RAD ---
Chest AP view INDICATION: Chest pain COMPARISON: August 14, 2019 FINDINGS: Lungs:The lungs are clear Cardiac silhouette:Stable mild cardiomegaly. Pulmonary vasculature:Normal Pleural spaces:No pleural effusion or pneumothorax is demonstrated. Upper abdomen:No abnormality seen. Osseous structures: No acute osseous abnormality. Additional findings:None. IMPRESSION: No acute cardiopulmonary abnormality.
[2019-08-16] MEDS: Lidocaine 5% Patch TD SCH (18:06)
--- NOTE | 2019-08-16 19:17 | CON ---
DATE OF CONSULTATION: REQUESTING PHYSICIAN: Kwame Guerrero MD REASON FOR CONSULTATION: Worsening renal failure. IMPRESSION: 1. Acute on chronic kidney disease. This is likely contrast nephropathy, they cannot completely rule out cytokine-mediated injury in the context of a leukocytosis. The patient got a CAT scan of the chest with contrast roughly 48 hours ago making this likely contrast nephropathy. 2. Morbid obesity. 3. Chronic kidney disease with a baseline creatinine of 1.3, likely diabetic nephropathy given the evidence of proteinuria in the urine. PLAN: 1. Quantify degree of proteinuria. 2. Renally dose all medications. 3. Gentle rehydration; however, if the patient's blood pressure begins to be quite difficult to control, please discontinue the IV fluid. 4. Avoid potentially nephrotoxic agents. 5. Further management will be dependent on the clinical course. HISTORY OF PRESENT ILLNESS: History is that of 74-year-old female patient, who presented here with back pain, did undergo CT angio to rule out pulmonary embolism two days ago, which came back negative for pulmonary embolism. The patient did undergo the imaging studies, but not with any contrast. However, the patient has been noted with rising creatinine at this time of dictation. Creatinine has gone up to 3.04. The patient also noted with the worsening hyponatremia. Baseline creatinine of this patient is likely around 1.3 to 1.5 range. As a result of these findings, decision has been taken to involve Renal in the management of this case. PAST MEDICAL HISTORY: Significant for breast carcinoma status post lumpectomy and radiation, coronary artery disease status post stents, hypertension, and diabetes mellitus. MEDICATIONS: Reviewed and as documented on [employer]. ALLERGIES: TO PROMETHAZINE, GRAPE, AND SULFA. FAMILY HISTORY: No family history of kidney disease. SOCIAL HISTORY: Denies alcohol, tobacco, or illicit drug use. REVIEW OF SYSTEMS: As documented in the body of the history. All the other systems were reviewed and found not to be significantly related to presenting illness. PHYSICAL EXAMINATION: GENERAL: The patient was found not to be in any obvious distress. Hemodynamically stable. VITAL SIGNS: Noted with the following vital signs; afebrile, temperature 99, pulse 70, respiratory rate of 20, and O2 saturations of 93% with a blood pressure 177/84. HEENT: Unremarkable. CARDIOVASCULAR SYSTEM: First and second heart sounds were heard. RESPIRATORY SYSTEM: Clear to auscultation. DIGESTIVE SYSTEM: Revealed an obese abdomen. EXTREMITIES: No peripheral edema. SKIN: No new gross rash. LYMPHATICS: No peripheral lymphadenopathy. SUMMARY: A 74-year-old female patient who presented here with chest pain, now noted with worsening creatinine, likely in the context of contrast nephropathy plus or minus cytokine-mediated injury. Please pay very close attention to this patient's blood pressure and discontinue IV fluid, if blood pressure remains uncontrolled. Job ID: [id number]
[2019-08-16] MEDS: Atorvastatin Calcium 40 MG TAB PO SCH (20:56)
[2019-08-16] MEDS: Insulin Glargine 45 UNITS in Pre-Filled Syringe 1 EACH SC SCH (21:59)
[2019-08-17] MEDS: hydrALAZINE 20 MG/ML VIAL SLOW IVP PRN (00:04)
[2019-08-17 04:54] LABS: #Eosinphils 0.3 thou/uL (0.0-0.7); #Monocytes 1.2 thou/uL (0.11-0.59); #Neutrophils 11.9 thou/uL (1.40-6.50); %Basophils 0.2 % (0.0-1.0); %Eosinophils 2.3 % (0.0-10.0); %Lymphocytes 7.1 % (21.0-51.0); %Monocytes 8.3 % (0.0-10.0); %Neutrophils 82.1 % (42.0-75.0); Hemoglobin 10.5 g/dL (12.0-16.0); Mean Corpuscular HGB CONC 32.6 g/dL (32.0-36.0); Mean Corpuscular Hemoglobin 27.5 pg (27.0-31.0); Mean Corpuscular Volume 84.4 fL (78.0-98.0); Mean Platelet Volume 7.4 fL (7.4-10.4); Platelet Count 369 thou/uL (130-400); RBC Distribution Width 13.9 % (11.5-14.5); Red Blood Cell (RBC) Count 3.81 mill/uL (4.20-5.40); White Blood Cell (WBC) Count 14.5 thou/uL (4.8-10.8)
[2019-08-17 05:16] LABS: Anion Gap 14 mmol/L (10-20); BUN (Urea Nitrogen) 36 mg/dL (9.8-20.1); Calc. Creatinine Clearance 42 mL/min (70-130); Calcium 8.9 mg/dL (7.8-10.44); Carbon Dioxide 25 mmol/L (23-31); Chloride 92 mmol/L (98-107); Estimated GFR-MDRD 26; Glucose 154 mg/dL (83-110); Potassium 4.4 mmol/L (3.5-5.1); Sodium 127 mmol/L (136-145)
[2019-08-17] MEDS: traMADol HCl 50 MG TAB PO PRN ×2 (05:32→12:10)
[2019-08-17] MEDS: Lidocaine Patch Removal TOP SCH (05:33)
[2019-08-17] MEDS: Metoprolol Tartrate 100 MG TAB PO SCH ×2 (08:14→22:21)
[2019-08-17] MEDS: Amlodipine 5 MG TAB PO SCH ×2 (08:14→09:26)
[2019-08-17] MEDS: Clopidogrel Bisulfate 75 MG TAB PO SCH (08:14)
[2019-08-17] MEDS: Letrozole 2.5 MG TAB PO SCH (08:14)
[2019-08-17] MEDS: Isosorbide Mononitrate (ER) 30 MG TAB PO SCH (08:14)
[2019-08-17] MEDS: Amoxicillin/Potassium Clav 875 MG TAB PO SCH ×2 (08:14→22:21)
[2019-08-17] MEDS: Aspirin 325 mg Enteric Coated Tablet PO SCH (08:14)
[2019-08-17] MEDS: Aspirin 81 mg Enteric Coated Tablet PO SCH (09:11)
[2019-08-17] MEDS ORDERED: Amlodipine 5 MG TAB PO SCH (09:15)
[2019-08-17] MEDS: Enoxaparin Sodium 40 MG/0.4 ML SYRINGE SC SCH (09:25)
[2019-08-17] MEDS: hydrALAZINE 25 MG TAB PO SCH ×3 (09:25→22:21)
[2019-08-17] MEDS: Sodium Chloride 0.9% 1,000 ML IV SCH ×2 (09:31→14:56)
[2019-08-17 11:29] LABS: Actual Bicarbonate (HCO3a) 21.2 mEq/L (22-28); Base Excess (BEa) -3.4 mEq/L (-2.0 to +3.0); CO2 Tension 36.2 mmHg (35.0-45.0); Calcium, Ionized 1.11 mmol/L (1.12-1.30); Carboxyhemoglobin (COHb) 0.7 gm% (0.0-3.0); Hemoglobin (Hb) 11.3 g/dL (12.0-16.0); O2 Tension (PaO2) 74.3 mmHg (> 70.0); Potassium - ABG Lab 4.48 mmol/L (3.70-5.30); pH, Arterial 7.39 (7.35-7.45)
[2019-08-17 11:30] LABS: Puncture Site RRA
[2019-08-17] MEDS: HumaLOG 300 UNITS/3 ML VIAL SC PRN ×2 (12:12→17:30)
[2019-08-17] MEDS: Ondansetron PF 4 MG/2 ML Vial IVP PRN (12:17)
--- NOTE | 2019-08-17 15:25 | PDOC.HOSPP ---
- Subjective Subjective: Reports she is still having some pain in the knees. This is chronic, but may be a little worse right now. Otherwise ok. - Objective Vital Signs & Weight: Vital Signs (12 hours) Temp Pulse Resp BP BP BP Pulse Ox 08/17/19 14:56 65 157/68 H 08/17/19 12:09 98.2 F 65 23 H 171/77 H 98 08/17/19 10:54 178/77 H 08/17/19 08:17 98 08/17/19 08:10 98.4 F 68 22 H 194/88 H 99 08/17/19 03:25 98.7 F 66 14 155/71 H 93 L Weight Weight 225 lb I&O: 08/16/19 08/17/19 08/18/19 06:59 06:59 06:59 Intake Total 1440 240 Output Total 650 Balance 790 240 Result Diagrams: 08/17/19 04:34 08/17/19 04:34 Additional Labs: Accuchecks 08/17/19 08/17/19 08/16/19 10:46 03:54 20:28 POC Glucose 236 H 168 H 212 H 08/16/19 16:43 POC Glucose 194 H Hospitalist ROS - Medication Medications: Active Medications Generic Name Dose Route Start Last Admin Trade Name Freq PRN Reason Stop Dose Admin Acetaminophen 325 mg 08/14/19 18:26 08/16/19 03:00 Tylenol PO 325 mg Q6H PRN Administration Headache/Fever/MILD Pain 1-3 Al Hydroxide/Mg Hydroxide 30 ml 08/14/19 20:36 08/14/19 20:56 Maalox PO 30 ml Q6H PRN Administration GI Upset Amlodipine Besylate 10 mg 08/17/19 09:00 08/17/19 09:26 Norvasc PO Not Given DAILY LIOR Amoxicillin/Clavulanate Potassium 875 mg 08/16/19 09:00 08/17/19 08:14 Augmentin PO 875 mg Q12HR LIOR Administration Aspirin 81 mg 08/17/19 09:00 08/17/19 09:11 Ecotrin PO Not Given DAILY LIOR Atorvastatin Calcium 80 mg 08/14/19 21:00 08/16/19 20:56 Lipitor PO 80 mg HS LIOR Administration Clopidogrel Bisulfate 75 mg 08/15/19 09:00 08/17/19 08:14 Plavix PO 75 mg DAILY LIOR Administration Enoxaparin Sodium 40 mg 08/17/19 09:00 08/17/19 09:25 Lovenox SC 40 mg 0900 LIOR Administration Hydralazine HCl 10 mg 08/16/19 17:02 08/17/19 00:04 Apresoline SLOW IVP 10 mg Q4H PRN Administration Hypertension Hydralazine HCl 25 mg 08/17/19 09:00 08/17/19 14:56 Apresoline PO 25 mg TID LIOR Administration Insulin Glargine 45 units/ 0.45 mls @ 0 mls/hr 08/14/19 21:00 08/16/19 21:59 Miscellaneous Medication SC 0.45 mls HS LIOR Administration Sodium Chloride 1,000 mls @ 75 mls/hr 08/15/19 17:45 08/17/19 14:56 Normal Saline 0.9% IV 1,000 mls .[id number] LIOR Administration Insulin Human Lispro 0 units 08/14/19 18:29 08/17/19 12:12 Humalog SC 3 unit .MILD SLIDING SCALE PRN Administration Mild Correctional Scale Isosorbide Mononitrate 30 mg 08/15/19 09:00 08/17/19 08:14 Imdur Er PO 30 mg DAILY LIOR Administration Letrozole 2.5 mg 08/15/19 09:00 08/17/19 08:14 Femara PO 2.5 mg DAILY LIOR Administration Lidocaine 1 patch 08/14/19 18:30 08/16/19 18:06 Lidoderm 5% Patch TD 1 patch Q24HR LIOR Administration Melatonin 3 mg 08/14/19 20:27 08/14/19 21:39 Melatonin PO 3 mg HS PRN Administration Insomnia Metoprolol Tartrate 100 mg 08/14/19 21:00 08/17/19 08:14 Lopressor PO 100 mg BID LIOR Administration Miscellaneous Medication 1 each 08/15/19 06:30 08/17/19 05:33 Lidocaine Patch Removal TOP 1 each 0630 LIOR Administration Ondansetron HCl 4 mg 08/16/19 02:22 08/17/19 12:17 Zofran IVP 4 mg Q6H PRN Administration Nausea/Vomiting Pantoprazole Sodium 40 mg 08/15/19 09:00 12/15/19 08:14 Protonix PO 40 mg DAILY LIOR Administration Ranolazine 500 mg 08/14/19 21:00 08/17/19 08:14 Ranexa PO 500 mg BID LIOR Administration Tramadol HCl 50 mg 08/14/19 20:27 08/17/19 12:10 Ultram PO 50 mg Q6H PRN Administration Moderate Pain (4-6) - Exam General Appearance: NAD, awake alert Heart: RRR, no murmur, no gallops, no rubs, normal peripheral pulses Respiratory: CTAB, no wheezes, no rales, no ronchi, normal chest expansion, no tachypnea, normal percussion Gastrointestinal: soft, non-tender, non-distended, normal bowel sounds, no palpable masses, no hepatomegaly, no splenomegaly, no bruit Extremities: no cyanosis, no clubbing, no edema Musculoskeletal: normal tone Psychiatric: normal affect Psychiatric - other findings: A little somnolent, but easily awakens and conversant. Hosp A/P (1) MELONIE (acute kidney injury) Code(s): N17.9 - ACUTE KIDNEY FAILURE, UNSPECIFIED Status: Acute (2) Hyponatremia Code(s): E87.1 - HYPO-OSMOLALITY AND HYPONATREMIA Status: Acute (3) Back pain Code(s): M54.9 - DORSALGIA, UNSPECIFIED Status: Acute (4) DJD (degenerative joint disease) of cervical spine Code(s): M47.812 - SPONDYLOSIS W/O MYELOPATHY OR RADICULOPATHY, CERVICAL REGION Status: Acute (5) DJD (degenerative joint disease) of thoracic spine Code(s): M47.814 - SPONDYLOSIS W/O MYELOPATHY OR RADICULOPATHY, THORACIC REGION Status: Acute (6) Degenerative joint disease (DJD) of lumbar spine Code(s): M47.816 - SPONDYLOSIS W/O MYELOPATHY OR RADICULOPATHY, LUMBAR REGION Status: Acute (7) Chest pain Code(s): R07.9 - CHEST PAIN, UNSPECIFIED Status: Acute (8) CAD (coronary artery disease) Code(s): I25.10 - ATHSCL HEART DISEASE OF [place] CORONARY ARTERY W/O ANG PCTRS Status: Acute (9) Hypertensive urgency Code(s): I16.0 - HYPERTENSIVE URGENCY Status: Acute (10) Breast cancer Status: Acute (11) Diabetes mellitus Code(s): E11.9 - TYPE 2 DIABETES MELLITUS WITHOUT COMPLICATIONS Status: Acute (12) GERD (gastroesophageal reflux disease) Code(s): K21.9 - GASTRO-ESOPHAGEAL REFLUX DISEASE WITHOUT ESOPHAGITIS Status: Acute (13) Anemia Code(s): D64.9 - ANEMIA, UNSPECIFIED Status: Acute (14) CKD (chronic kidney disease), stage III Code(s): N18.3 - CHRONIC KIDNEY DISEASE, STAGE 3 (MODERATE) Status: Acute (15) Right knee DJD Code(s): M17.11 - UNILATERAL PRIMARY OSTEOARTHRITIS, RIGHT KNEE Status: Acute (16) HLD (hyperlipidemia) Code(s): E78.5 - HYPERLIPIDEMIA, UNSPECIFIED Status: Acute - Plan Chest/back pain: appear to be related to DJD. Continue lidocaine, current meds. MELONIE on CKD III: Primary issue now is the worsening renal function. May be an acute hypertensive nephropathy on CKD III. On some IVF. Consult Nephrology. Better today. Continue current tx and recheck tomorrow. Hyponatremia: Hyponatremia appears to be related to the nephropathy. Appreciate nephrology input. Hypertensive urgency: BP improved, but still high. Continue Amlodipine and Metoprolol. Adding Hydralazine due to continued poor control. Diabetes: Adequate control. Holding metformin with current GFR. Accuchecks and SSI. HLD: Continue home statin. CAD: Continue ASA, statin. Continue Ranexa Breast cancer: Continue Letrozole
[2019-08-17] MEDS: Lidocaine 5% Patch TD SCH (17:31)
--- NOTE | 2019-08-17 18:39 | PRG ---
DATE OF SERVICE: 08/17/2019 SUBJECTIVE: The patient is seen and examined, noted, seems to be doing a little bit better pain in the knees. Noted with the following vital signs. OBJECTIVE: VITAL SIGNS: Afebrile. Temperature 98.2, pulse 65, respiratory rate of 23, blood pressure 194/88, and O2 saturation of 98%. HEENT: Unremarkable. CARDIOVASCULAR: First and second heart sounds were heard. RESPIRATORY SYSTEM: Clear to auscultation. DIGESTIVE SYSTEM: Reviewed a benign abdomen. EXTREMITIES: No peripheral edema. SKIN: No new gross rash. LYMPHATICS: No peripheral lymphadenopathy. IMPRESSION: 1. [id number] kidney disease, which seems to be improved, status post rehydration. This is likely contrast nephropathy. 2. Hypertension, suboptimally controlled. PLAN: 1. Discontinue IV fluid. 2. Renally dose all medications. 3. Continue other renal supportive measures. 4. Further management to be dependent on the clinical course. 5. Outpatient Nephrology followup, status post discharge recommended. Job ID: [id number]
[2019-08-17 20:32] LABS: Creatinine, Urine 128.66 mg/dL (47-110)
[2019-08-17] MEDS: Atorvastatin Calcium 40 MG TAB PO SCH (22:20)
[2019-08-17] MEDS: Insulin Glargine 45 UNITS in Pre-Filled Syringe 1 EACH SC SCH (22:21)
[2019-08-18 05:00] LABS: Anion Gap 17 mmol/L (10-20); BUN (Urea Nitrogen) 37 mg/dL (9.8-20.1); Calc. Creatinine Clearance 49 mL/min (70-130); Calcium 9.3 mg/dL (7.8-10.44); Carbon Dioxide 22 mmol/L (23-31); Chloride 92 mmol/L (98-107); Estimated GFR-MDRD 31; Glucose 121 mg/dL (83-110); Sodium 126 mmol/L (136-145)
[2019-08-18] MEDS: Lidocaine Patch Removal TOP SCH (06:23)
[2019-08-18] MEDS: Aspirin 81 mg Enteric Coated Tablet PO SCH (08:13)
[2019-08-18] MEDS: Amoxicillin/Potassium Clav 875 MG TAB PO SCH ×2 (08:13→20:42)
[2019-08-18] MEDS: hydrALAZINE 25 MG TAB PO SCH ×3 (08:14→20:43)
[2019-08-18] MEDS: Amlodipine 5 MG TAB PO SCH (08:14)
[2019-08-18] MEDS: Isosorbide Mononitrate (ER) 30 MG TAB PO SCH (08:14)
[2019-08-18] MEDS: Clopidogrel Bisulfate 75 MG TAB PO SCH (08:14)
[2019-08-18] MEDS: Letrozole 2.5 MG TAB PO SCH (08:15)
[2019-08-18] MEDS: Metoprolol Tartrate 100 MG TAB PO SCH ×2 (08:15→20:44)
[2019-08-18] MEDS: Enoxaparin Sodium 40 MG/0.4 ML SYRINGE SC SCH (08:15)
--- NOTE | 2019-08-18 11:50 | PDOC.HOSPP ---
- Subjective Subjective: Patient reports that she is still short of breath. She is a non-smoker. Patient reports that she snores and has significant daytime sleepiness. - Objective Vital Signs & Weight: Vital Signs (12 hours) Temp Pulse Pulse Pulse Resp BP BP 08/18/19 11:10 97.5 F L 63 16 08/18/19 10:00 60 08/18/19 09:05 61 63 145/67 H 08/18/19 08:14 70 199/83 H 08/18/19 08:00 97.8 F 70 20 08/18/19 07:40 08/18/19 03:19 64 20 08/18/19 03:00 97.9 F 65 14 BP BP Pulse Ox Pulse Ox Pulse Ox 08/18/19 11:10 169/73 H 94 L 08/18/19 10:00 157/68 H 08/18/19 09:05 158/72 H 96 95 08/18/19 08:14 08/18/19 08:00 199/83 H 99 08/18/19 07:40 97 08/18/19 03:19 170/76 H 97 08/18/19 03:00 185/83 H 100 Weight Weight 227 lb 6.4 oz I&O: 08/17/19 08/18/19 08/19/19 06:59 06:59 06:59 Intake Total 240 1830 Output Total 250 Balance 240 1580 Result Diagrams: 08/17/19 04:34 08/18/19 04:05 Additional Labs: Accuchecks 08/18/19 08/18/19 08/17/19 10:37 05:19 20:50 POC Glucose 195 H 131 H 129 H 08/17/19 16:56 POC Glucose 190 H Hospitalist ROS - Medication Medications: Active Medications Generic Name Dose Route Start Last Admin Trade Name Freq PRN Reason Stop Dose Admin Acetaminophen 325 mg 08/14/19 18:26 08/16/19 03:00 Tylenol PO 325 mg Q6H PRN Administration Headache/Fever/MILD Pain 1-3 Al Hydroxide/Mg Hydroxide 30 ml 08/14/19 20:36 08/14/19 20:56 Maalox PO 30 ml Q6H PRN Administration GI Upset Amlodipine Besylate 10 mg 08/17/19 09:00 08/18/19 08:14 Norvasc PO 10 mg DAILY LIOR Administration Amoxicillin/Clavulanate Potassium 875 mg 08/16/19 09:00 08/18/19 08:13 Augmentin PO 875 mg Q12HR LIOR Administration Aspirin 81 mg 08/17/19 09:00 08/18/19 08:13 Ecotrin PO 81 mg DAILY LIOR Administration Atorvastatin Calcium 80 mg 08/14/19 21:00 08/17/19 22:20 Lipitor PO 80 mg HS LIOR Administration Clopidogrel Bisulfate 75 mg 08/15/19 09:00 08/18/19 08:14 Plavix PO 75 mg DAILY LIOR Administration Enoxaparin Sodium 40 mg 08/17/19 09:00 08/18/19 08:15 Lovenox SC 40 mg 0900 LIOR Administration Hydralazine HCl 10 mg 08/16/19 17:02 08/17/19 00:04 Apresoline SLOW IVP 10 mg Q4H PRN Administration Hypertension Hydralazine HCl 25 mg 08/17/19 09:00 08/18/19 08:14 Apresoline PO 25 mg TID LIOR Administration Insulin Glargine 45 units/ 0.45 mls @ 0 mls/hr 08/14/19 21:00 08/17/19 22:21 Miscellaneous Medication SC Not Given HS [facility] Insulin Human Lispro 0 units 08/14/19 18:29 08/17/19 17:30 Humalog SC 2 unit .MILD SLIDING SCALE PRN Administration Mild Correctional Scale Isosorbide Mononitrate 30 mg 08/15/19 09:00 08/18/19 08:14 Imdur Er PO 30 mg DAILY LIOR Administration Letrozole 2.5 mg 08/15/19 09:00 08/18/19 08:15 Femara PO 2.5 mg DAILY LIOR Administration Lidocaine 1 patch 08/14/19 18:30 08/17/19 17:31 Lidoderm 5% Patch TD 1 patch Q24HR LIOR Administration Melatonin 3 mg 08/14/19 20:27 08/14/19 21:39 Melatonin PO 3 mg HS PRN Administration Insomnia Metoprolol Tartrate 100 mg 08/14/19 21:00 08/18/19 08:15 Lopressor PO 100 mg BID LIOR Administration Miscellaneous Medication 1 each 08/15/19 06:30 08/18/19 06:23 Lidocaine Patch Removal TOP 1 each 0630 LIOR Administration Ondansetron HCl 4 mg 08/16/19 02:22 08/17/19 12:17 Zofran IVP 4 mg Q6H PRN Administration Nausea/Vomiting Pantoprazole Sodium 40 mg 08/15/19 09:00 08/18/19 08:13 Protonix PO 40 mg DAILY LIOR Administration Ranolazine 500 mg 08/14/19 21:00 08/18/19 08:15 Ranexa PO 500 mg BID LIOR Administration Tramadol HCl 50 mg 08/14/19 20:27 08/17/19 12:10 Ultram PO 50 mg Q6H PRN Administration Moderate Pain (4-6) - Exam General Appearance: NAD, awake alert General - other findings: obese Heart: RRR, no murmur, no gallops, no rubs, normal peripheral pulses Respiratory: CTAB, no wheezes, no rales, no ronchi, normal chest expansion, no tachypnea, normal percussion Gastrointestinal: soft, non-tender, non-distended, normal bowel sounds, no palpable masses, no hepatomegaly, no splenomegaly, no bruit Extremities: no cyanosis, no clubbing, no edema Musculoskeletal: normal tone Psychiatric: normal affect, normal behavior, A&O x 3 Hosp A/P (1) MELONIE (acute kidney injury) Code(s): N17.9 - ACUTE KIDNEY FAILURE, UNSPECIFIED Status: Acute (2) Hyponatremia Code(s): E87.1 - HYPO-OSMOLALITY AND HYPONATREMIA Status: Acute (3) Back pain Code(s): M54.9 - DORSALGIA, UNSPECIFIED Status: Acute (4) DJD (degenerative joint disease) of cervical spine Code(s): M47.812 - SPONDYLOSIS W/O MYELOPATHY OR RADICULOPATHY, CERVICAL REGION Status: Acute (5) DJD (degenerative joint disease) of thoracic spine Code(s): M47.814 - SPONDYLOSIS W/O MYELOPATHY OR RADICULOPATHY, THORACIC REGION Status: Acute (6) Degenerative joint disease (DJD) of lumbar spine Code(s): M47.816 - SPONDYLOSIS W/O MYELOPATHY OR RADICULOPATHY, LUMBAR REGION Status: Acute (7) Chest pain Code(s): R07.9 - CHEST PAIN, UNSPECIFIED Status: Acute (8) CAD (coronary artery disease) Code(s): I25.10 - ATHSCL HEART DISEASE OF [place] CORONARY ARTERY W/O ANG PCTRS Status: Acute (9) Hypertensive urgency Code(s): I16.0 - HYPERTENSIVE URGENCY Status: Acute (10) Breast cancer Status: Acute (11) Diabetes mellitus Code(s): E11.9 - TYPE 2 DIABETES MELLITUS WITHOUT COMPLICATIONS Status: Acute (12) GERD (gastroesophageal reflux disease) Code(s): K21.9 - GASTRO-ESOPHAGEAL REFLUX DISEASE WITHOUT ESOPHAGITIS Status: Acute (13) Anemia Code(s): D64.9 - ANEMIA, UNSPECIFIED Status: Acute (14) CKD (chronic kidney disease), stage III Code(s): N18.3 - CHRONIC KIDNEY DISEASE, STAGE 3 (MODERATE) Status: Acute (15) Right knee DJD Code(s): M17.11 - UNILATERAL PRIMARY OSTEOARTHRITIS, RIGHT KNEE Status: Acute (16) HLD (hyperlipidemia) Code(s): E78.5 - HYPERLIPIDEMIA, UNSPECIFIED Status: Acute (17) Acute respiratory failure with hypoxia Code(s): J96.01 - ACUTE RESPIRATORY FAILURE WITH HYPOXIA Status: Acute - Plan Hypoxemia: Appears to be the primary issue currently. ABG yesterday showed normal pO2 and an elevated A-a gradient. This was performed while the patient was on O2. Will repeat ABG today on room air and consider pulmonology consult. CT chest and CXR were normal. Chest/back pain: appear to be related to DJD. Continue lidocaine, current meds. MELONIE on CKD III: May be an acute contrast nephropathy on CKD III. Nephrology recommended d/c IVF and avoiding nephrotoxic meds. Renal function improved today. Will f/u with nephrology outpatient. Hyponatremia: Hyponatremia appears to be related to the nephropathy. Improved today but still below patient's baseline. Hypertensive urgency: BP improved, but still high. Continue Amlodipine and Metoprolol. Adding Hydralazine due to continued poor control. Diabetes: Adequate control. Holding metformin with current GFR. Accuchecks and SSI. HLD: Continue home statin. CAD: Continue ASA, statin. Continue Ranexa Breast cancer: Continue Letrozole
[2019-08-18 12:40] LABS: Actual Bicarbonate (HCO3a) 21.2 mEq/L (22-28); Analyzer IN Cardio OR; Base Excess (BEa) -3.6 mEq/L (-2.0 to +3.0); CO2 Tension 37.5 mmHg (35.0-45.0); Calcium, Ionized 1.15 mmol/L (1.12-1.30); Carboxyhemoglobin (COHb) 0.8 gm% (0.0-3.0); Hemoglobin (Hb) 11.9 g/dL (12.0-16.0); Potassium - ABG Lab 4.69 mmol/L (3.70-5.30); pH, Arterial 7.37 (7.35-7.45)
[2019-08-18 13:08] LABS: ALV-art Gradient 49.555 (0-20); O2 Tension (PaO2) 53.3 mmHg (> 70.0); Puncture Site RR
--- NOTE | 2019-08-18 14:15 | PQF ---
CLINICAL DOCUMENTATION IMPROVEMENT CLARIFICATION FORM: ICD-10 Updated PLEASE DO AN ADDENDUM TO THE PROGRESS NOTE WITH ANY DOCUMENTATION UPDATES OR ADDITIONS AND CARRY THROUGH TO DC SUMMARY. THANK YOU. DATE: 08/18/2019; 08/19/2019 ATTN: Dr. Guerrero Please exercise your independent, professional judgment in responding to the clarification form. Clinical indicators are provided on the bottom of this form for your review Please check appropriate box(s) to clarify if the following diagnosis has been ruled in or ruled out: PNEUMONIA [ ] Ruled in diagnosis [ ] Continue to treat [ ] Resolved [ x ] Ruled out diagnosis [ ] Cannot rule out diagnosis [ ] Other diagnosis [ ] Unable to determine In addition, please specify: Present on Admission (POA): [ ] Yes [ ] No [ ] Unable to determine For continuity of documentation, please document condition throughout progress notes and discharge summary. Thank You. CLINICAL INDICATORS - SIGNS / SYMPTOMS / LABS / RESULTS AND LOCATION IN MR PN 08/15: Leukocytosis - possibly pneumonia -WBC of 14.3, CTA showed possible consolidation RML, WBC increasing to 15 pn 08/18: Hypoxemia: ABG yesterday showed normal pO2 and an elevated A-a gradient. while pt was on O2 CT chest and CXR were normal RISKS: PN 08/15: 74 yr old with PMH of CAD, breast cancer w/p lumpectomy, type II DM, HTN. Back pain. MELONIE. Hyponatremia TREATMENT: MAR: 08/15L Augmentin 875 mg po Q12 hr MAR: 08/15-08/17: NS IV 75 mls/hr 08/18: Pulmonary Consult ordered Thank you, Lesvia (This form is maintained as a part of the permanent medical record) 2015 [facility]. All Rights Reserved Lesvia Mcfarland RN, BSN [email or web address] Office: [phone] [facility]
[2019-08-18] MEDS: Ondansetron PF 4 MG/2 ML Vial IVP PRN (17:40)
[2019-08-18] MEDS: HumaLOG 300 UNITS/3 ML VIAL SC PRN (17:40)
[2019-08-18] MEDS: Lidocaine 5% Patch TD SCH (17:41)
[2019-08-18] MEDS: traMADol HCl 50 MG TAB PO PRN (20:41)
[2019-08-18] MEDS: Acetaminophen 325 MG TAB PO PRN (20:42)
[2019-08-18] MEDS: Atorvastatin Calcium 40 MG TAB PO SCH (20:42)
[2019-08-18] MEDS: Insulin Glargine 45 UNITS in Pre-Filled Syringe 1 EACH SC SCH (21:24)
--- NOTE | 2019-08-19 00:05 | PRG ---
DATE OF SERVICE: 08/18/2019 OBJECTIVE: VITAL SIGNS: The patient has been noted with the following vital signs; afebrile, temperature 97.9, pulse 80, respiratory rate of 20, O2 saturations are , blood pressure 180/83. HEENT: Unremarkable. CARDIOVASCULAR: First and second heart sounds were heard. RESPIRATORY SYSTEM: Clear to auscultation. DIGESTIVE SYSTEM: Revealed a benign abdomen. EXTREMITIES: No peripheral edema. SKIN: No new gross rash. LABORATORY INVESTIGATION: Reviewed. Creatinine down to 1.63, BUN of 37, sodium of . IMPRESSION: 1. Acute on chronic kidney disease, likely in the context of contrast nephropathy, improving. 2. Hypertension, suboptimally controlled. 3. Hyponatremia. PLAN: 1. Continue current renal supportive measures. 2. We will discontinue IV fluid and improve and adjust antihypertensive medications to optimize hemodynamics. 3. Get a urine chemistry to further evaluate this worsening hyponatremia and treat accordingly based on the results. 4. Further management will be dependent on the clinical course. Job ID: [id number]
[2019-08-19 05:33] LABS: Anion Gap 13 mmol/L (10-20); BUN (Urea Nitrogen) 36 mg/dL (9.8-20.1); Calc. Creatinine Clearance 55 mL/min (70-130); Calcium 9.5 mg/dL (7.8-10.44); Carbon Dioxide 25 mmol/L (23-31); Chloride 93 mmol/L (98-107); Estimated GFR-MDRD 34; Glucose 135 mg/dL (83-110); Potassium 4.6 mmol/L (3.5-5.1); Sodium 126 mmol/L (136-145)
[2019-08-19] MEDS: Lidocaine Patch Removal TOP SCH (06:26)
[2019-08-19] MEDS: hydrALAZINE 20 MG/ML VIAL SLOW IVP PRN (07:14)
[2019-08-19] MEDS: Ondansetron PF 4 MG/2 ML Vial IVP PRN (08:31)
[2019-08-19] MEDS: hydrALAZINE 25 MG TAB PO SCH (08:34)
[2019-08-19] MEDS: Metoprolol Tartrate 100 MG TAB PO SCH (08:34)
[2019-08-19] MEDS: Amlodipine 5 MG TAB PO SCH (08:34)
[2019-08-19] MEDS: Clopidogrel Bisulfate 75 MG TAB PO SCH (08:34)
[2019-08-19] MEDS: Isosorbide Mononitrate (ER) 30 MG TAB PO SCH (08:34)
[2019-08-19] MEDS: Aspirin 81 mg Enteric Coated Tablet PO SCH (08:34)
[2019-08-19] MEDS: HumaLOG 300 UNITS/3 ML VIAL SC PRN ×2 (08:35→11:25)
[2019-08-19] MEDS: Enoxaparin Sodium 40 MG/0.4 ML SYRINGE SC SCH (08:35)
[2019-08-19] MEDS: Amoxicillin/Potassium Clav 875 MG TAB PO SCH (08:35)
[2019-08-19] MEDS: Letrozole 2.5 MG TAB PO SCH (08:35)
--- NOTE | 2019-08-19 10:59 | PDOC.HOSPP ---
- Subjective Subjective: Pt resting comfortably in bed off O2. Trial on room air showed pt could maintain sats above 90% with ambulating. Pt states that she is ready to go home. - Objective Vital Signs & Weight: Vital Signs (12 hours) Temp Pulse Resp BP BP Pulse Ox 08/19/19 08:34 77 144/62 H 08/19/19 08:00 99.1 F 77 20 144/62 H 96 08/19/19 07:14 63 08/19/19 04:00 98.7 F 63 18 185/84 H 97 08/19/19 00:00 64 160/70 H Weight Weight 233 lb 4.8 oz I&O: 08/18/19 08/19/19 08/20/19 06:59 06:59 06:59 Intake Total 1830 740 Output Total 250 1500 Balance 1580 -760 Result Diagrams: 08/17/19 04:34 08/19/19 05:04 Additional Labs: Accuchecks 08/19/19 08/19/19 08/18/19 10:31 05:52 20:29 POC Glucose 194 H 152 H 232 H 08/18/19 08/18/19 17:20 10:37 POC Glucose 255 H 195 H Hospitalist ROS - Medication Medications: Active Medications Generic Name Dose Route Start Last Admin Trade Name Freq PRN Reason Stop Dose Admin Acetaminophen 325 mg 08/14/19 18:26 08/18/19 20:42 Tylenol PO 325 mg Q6H PRN Administration Headache/Fever/MILD Pain 1-3 Al Hydroxide/Mg Hydroxide 30 ml 08/14/19 20:36 08/14/19 20:56 Maalox PO 30 ml Q6H PRN Administration GI Upset Amlodipine Besylate 10 mg 08/17/19 09:00 08/19/19 08:34 Norvasc PO 10 mg DAILY LIOR Administration Amoxicillin/Clavulanate Potassium 875 mg 08/16/19 09:00 08/19/19 08:35 Augmentin PO 875 mg Q12HR LIOR Administration Aspirin 81 mg 08/17/19 09:00 08/19/19 08:34 Ecotrin PO 81 mg DAILY LIOR Administration Atorvastatin Calcium 80 mg 08/14/19 21:00 08/18/19 20:42 Lipitor PO 80 mg HS LIOR Administration Clopidogrel Bisulfate 75 mg 08/15/19 09:00 08/19/19 08:34 Plavix PO 75 mg DAILY LIOR Administration Enoxaparin Sodium 40 mg 08/17/19 09:00 08/19/19 08:35 Lovenox SC 40 mg 0900 LIOR Administration Hydralazine HCl 10 mg 08/16/19 17:02 08/19/19 07:14 Apresoline SLOW IVP 10 mg Q4H PRN Administration Hypertension Hydralazine HCl 25 mg 08/17/19 09:00 08/19/19 08:34 Apresoline PO 25 mg TID LIOR Administration Insulin Glargine 45 units/ 0.45 mls @ 0 mls/hr 08/14/19 21:00 08/18/19 21:24 Miscellaneous Medication SC 0.45 mls HS LIOR Administration Insulin Human Lispro 0 units 08/14/19 18:29 08/19/19 08:35 Humalog SC 2 unit .MILD SLIDING SCALE PRN Administration Mild Correctional Scale Isosorbide Mononitrate 30 mg 08/15/19 09:00 08/19/19 08:34 Imdur Er PO 30 mg DAILY LIOR Administration Letrozole 2.5 mg 08/15/19 09:00 08/19/19 08:35 Femara PO 2.5 mg DAILY LIOR Administration Lidocaine 1 patch 08/14/19 18:30 08/18/19 17:41 Lidoderm 5% Patch TD 1 patch Q24HR LIOR Administration Melatonin 3 mg 08/14/19 20:27 08/14/19 21:39 Melatonin PO 3 mg HS PRN Administration Insomnia Metoprolol Tartrate 100 mg 08/14/19 21:00 08/19/19 08:34 Lopressor PO 100 mg BID LIOR Administration Miscellaneous Medication 1 each 08/15/19 06:30 08/19/19 06:26 Lidocaine Patch Removal TOP Not Given 0630 [facility] Ondansetron HCl 4 mg 08/16/19 02:22 08/19/19 08:31 Zofran IVP 4 mg Q6H PRN Administration Nausea/Vomiting Pantoprazole Sodium 40 mg 08/15/19 09:00 08/19/19 08:34 Protonix PO 40 mg DAILY LIOR Administration Ranolazine 500 mg 08/14/19 21:00 08/19/19 08:34 Ranexa PO 500 mg BID LIOR Administration Tramadol HCl 50 mg 08/14/19 20:27 08/18/19 20:41 Ultram PO 50 mg Q6H PRN Administration Moderate Pain (4-6) - Exam Heart: RRR, no murmur, no gallops, no rubs Respiratory: CTAB, no wheezes, no rales, no ronchi, normal chest expansion, no tachypnea Gastrointestinal: soft, non-tender, non-distended Extremities - other findings: trace lower extremity edema Hosp A/P (1) MELONIE (acute kidney injury) Code(s): N17.9 - ACUTE KIDNEY FAILURE, UNSPECIFIED Status: Acute (2) Hyponatremia Code(s): E87.1 - HYPO-OSMOLALITY AND HYPONATREMIA Status: Acute (3) Back pain Code(s): M54.9 - DORSALGIA, UNSPECIFIED Status: Acute (4) DJD (degenerative joint disease) of cervical spine Code(s): M47.812 - SPONDYLOSIS W/O MYELOPATHY OR RADICULOPATHY, CERVICAL REGION Status: Acute (5) DJD (degenerative joint disease) of thoracic spine Code(s): M47.814 - SPONDYLOSIS W/O MYELOPATHY OR RADICULOPATHY, THORACIC REGION Status: Acute (6) Degenerative joint disease (DJD) of lumbar spine Code(s): M47.816 - SPONDYLOSIS W/O MYELOPATHY OR RADICULOPATHY, LUMBAR REGION Status: Acute (7) Chest pain Code(s): R07.9 - CHEST PAIN, UNSPECIFIED Status: Acute (8) CAD (coronary artery disease) Code(s): I25.10 - ATHSCL HEART DISEASE OF [place] CORONARY ARTERY W/O ANG PCTRS Status: Acute (9) Hypertensive urgency Code(s): I16.0 - HYPERTENSIVE URGENCY Status: Acute (10) Breast cancer Status: Acute (11) Diabetes mellitus Code(s): E11.9 - TYPE 2 DIABETES MELLITUS WITHOUT COMPLICATIONS Status: Acute (12) GERD (gastroesophageal reflux disease) Code(s): K21.9 - GASTRO-ESOPHAGEAL REFLUX DISEASE WITHOUT ESOPHAGITIS Status: Acute (13) Anemia Code(s): D64.9 - ANEMIA, UNSPECIFIED Status: Acute (14) CKD (chronic kidney disease), stage III Code(s): N18.3 - CHRONIC KIDNEY DISEASE, STAGE 3 (MODERATE) Status: Acute (15) Right knee DJD Code(s): M17.11 - UNILATERAL PRIMARY OSTEOARTHRITIS, RIGHT KNEE Status: Acute (16) HLD (hyperlipidemia) Code(s): E78.5 - HYPERLIPIDEMIA, UNSPECIFIED Status: Acute (17) Acute respiratory failure with hypoxia Code(s): J96.01 - ACUTE RESPIRATORY FAILURE WITH HYPOXIA Status: Acute - Plan Hypoxemia: Improved. Pulmonology recommended outpatient polysomnogram. Trial for home O2 revealed pt stable with sats above 90%. Chest/back pain: appear to be related to DJD. Continue lidocaine, current meds. MELONIE on CKD III: May be an acute contrast nephropathy on CKD III. Avoiding nephrotoxic meds. Renal function improved today. Will f/u with nephrology outpatient. Hyponatremia: Hyponatremia appears to be related to the nephropathy. Stable today but still below patient's baseline. Urine Na and Osm were normal. Nephrology will follow outpatient. Hypertensive urgency: BP better today. Continue Amlodipine and Metoprolol. Diabetes: Adequate control. Continue holding metformin with current GFR. Accuchecks and SSI. HLD: Continue home statin. CAD: Continue ASA, statin. Continue Ranexa Breast cancer: Continue Letrozole. Will plan to d/c home today. Pulmonology and nephrology have ok'd pt to go.
[2019-08-19 12:19] VITALS: TEMP 98.4
[2019-08-19 13:31] VITALS: BP 182/79
--- NOTE | 2019-08-19 17:53 | PRG ---
DATE OF SERVICE: 08/19/2019 SUBJECTIVE: The patient is seen and examined, noted with the following vital signs. OBJECTIVE: VITAL SIGNS: Temperature 98.4, pulse 76, respiratory rate 16, O2 saturations are 96% to 92%, blood pressure 167/77. HEENT: Unremarkable. CARDIOVASCULAR: First and second heart sounds were heard. RESPIRATORY: Clear to auscultation. DIGESTIVE SYSTEM: Revealed a benign abdomen. EXTREMITIES: No peripheral edema. SKIN: No new gross rash. LYMPHATICS: No peripheral lymphadenopathy. IMPRESSION: 1. Acute on chronic kidney disease, seems to be much improved. 2. Hypertension, suboptimally controlled. 3. Morbid obesity. PLAN: 1. Continue current renal supportive measures. 2. Outpatient Nephrology followup status post discharge strongly recommended. 3. Further management to be dependent on the clinical course. Job ID: [id number]
--- NOTE | 2019-08-20 11:50 | CON ---
DATE OF CONSULTATION: 08/19/2019 HISTORY OF PRESENT ILLNESS: Avinash is a pleasant 74-year-old female. She was admitted on 08/14 with a complaint of back pain. She says this radiated down in her legs . She was subsequently admitted. CT . Placed on nitroglycerin and aspirin. Admitted. Not felt to have had cardiac event. I was consulted for hypoxemia. She says shes feeling a little better. PAST MEDICAL HISTORY: Remarkable for hypertension, diabetes, breast cancer. PAST SURGICAL HISTORY: Remarkable for lumpectomy, cataract surgery, and cholecystectomy. FAMILY HISTORY: Positive for diabetes, hypertension SOCIAL HISTORY: Never smoked, never drinker. REVIEW OF SYSTEMS: Ten point review of systems completed, otherwise negative. PHYSICAL EXAMINATION: GENERAL: Pleasant , distress. VITAL SIGNS: Afebrile, heart rate 77, blood pressure stable with a high blood pressure earlier in the morning HEENT: pupils react. HEAD AND NECK: Unremarkable. LUNGS: Clear. HEART: Regular rhythm. No S3. No murmur . LABORATORY DATA: White count on the 15th of 14.5, hemoglobin 10, platelets 369,000. Sodium 126, potassium 4.6, chloride 93, bicarb 25, BUN 36, creatinine 1.49. IMPRESSION: 1. Hypoxemia secondary to obesity, atelectasis and probably untreated. Apnea. I have recommended to follow up with me and set her up for a sleep study. I doubt she has an infectious process. 2. Hyponatremia . 3. Chronic kidney disease, being seen by Nephrology . I will be happy to follow her . This is a 50 minute consult, with greater than 50% of time spent on unit coordinating care. Job ID: [id number] [facility]
--- NOTE | 2019-08-20 12:15 | DIS ---
DATE OF ADMISSION: 08/15/2019 DATE OF DISCHARGE: 08/19/2019 DISCHARGE DIAGNOSES: 1. Back pain secondary to degenerative joint disease of the thoracic and lumbar spine. 2. Acute kidney injury, likely contrast nephropathy. 3. Hyponatremia secondary to acute kidney injury. 4. Chest pain, likely variant of her back pain. 5. History of coronary artery disease. 6. Hypertensive urgency. 7. Breast cancer. 8. Diabetes mellitus. 9. Gastroesophageal reflux disease. 10. Anemia. 11. Chronic kidney disease, stage 3. 12. Degenerative joint disease of the knee. 13. Hyperlipidemia. 14. Acute hypoxic respiratory failure. HISTORY OF PRESENT ILLNESS: This patient is a 74-year-old female, who is obese and has a history of coronary artery disease, degenerative joint disease, breast cancer, diabetes, chronic kidney disease stage 3, and obesity, who presented to the hospital with back pain which has been present for about 3 days. There was some variable history as to whether this including some chest discomfort or whether it was just a variation of her back pain. She initially underwent imaging in the emergency department, which included a CT angiogram which was unremarkable. She had CT scan of her cervical, thoracic and lumbar spine, revealing significant degenerative disease throughout without any acute findings. HOSPITAL COURSE: The patient was placed in the hospital for observation with concern regarding possibility of chest pain. She was seen in consultation by Cardiology, who felt that there was no cardiac component to her symptoms. Subsequently, however, the patient's creatinine declined and her GFR declined. Currently, she had acute on chronic renal failure, felt to be related to contrast induced nephropathy. She was seen in consultation by Nephrology, had fluids continued and over time, her renal function did in fact improve. During her stay, the patient also had some knee pain which was chronic. She also had the need for oxygen much of the time with relative hypoxia consistent with acute hypoxic respiratory failure. Repeat chest x-ray showed no acute pathology. ABGs confirmed the patient did have some hypoxia, however, it was not as significant as was indicated on her peripheral pulse oximeter. She did have some witnessed daytime hypersomnolence and some sleep apnea. Pulmonology was consulted, who felt that it was likely more of a sleep apnea related component. The patient was otherwise stable for discharge. Her renal function did improve and was near her baseline as well. Therefore, she was felt to be stable for discharge on the day of discharge. Please see the progress note for physical exam findings. DISPOSITION: The patient is discharged to home. ACTIVITY: As tolerated. DIET: She will be on a diabetic heart healthy diet. DISCHARGE MEDICATIONS: She will be on: 1. Ranexa 500 mg b.i.d. 2. Plavix 75 mg daily. 3. Metoprolol 100 mg b.i.d. 4. Metformin 500 mg b.i.d. 5. Amlodipine 5 mg daily. 6. Aspirin 81 mg p.o. daily. 7. Hydrochlorothiazide 25 mg daily. 8. Isosorbide 30 mg daily. 9. Nitroglycerin p.r.n. 10. Insulin Levemir 45 units subcu at bedtime. 11. NovoLog 12 units subcu t.i.d. with meals. 12. Atorvastatin 80 mg at bedtime. 13. Letrozole 2.5 mg daily. 14. Nexium 40 mg p.o. daily. FOLLOWUP: She will follow up with Dr. Kenyon in 2 to 3 weeks, Getachew Rojas in 7 days, Corey Reis in 3 to 4 weeks. She can return to the hospital at anytime should she have the need to do so. Job ID: [id number]
--- NOTE | 2019-08-25 17:12 | EKG ---
Test Reason : STAT Blood Pressure : / mmHG Vent. Rate : 071 BPM Atrial Rate : 071 BPM P-R Int : 148 ms QRS Dur : 084 ms QT Int : 406 ms P-R-T Axes : 000 022 201 degrees QTc Int : 441 ms Sinus rhythm with Premature atrial complexes T wave abnormality, consider lateral ischemia Abnormal ECG When compared with ECG of 05-OCT-2017 12:41, Premature atrial complexes are now Present Confirmed by DALLAS JOHNS M.D. ([id number]) on 08/25/2019 5:11:56 PM Referred By: DORITA Confirmed By:DALLAS JOHNS M.D.
== END 2019-08-19 13:39 | disposition home or self-care (01) | DRG 551 ==
LOC: ERS 12:52 → 2SW 16:20 → OBSVTOIN 08-15 20:12 → 2NO 08-16 06:38
PROVIDERS: ADMIT Internal Medicine; ATTEND Internal Medicine
DX: M47.896 Other spondylosis, lumbar region (principal); J96.01 Acute respiratory failure with hypoxia; N17.9 Acute kidney failure, unspecified; E87.1 Hypo-osmolality and hyponatremia; Z68.41 Body mass index [BMI] 40.0-44.9, adult; E11.21 Type 2 diabetes mellitus with diabetic nephropathy; D63.1 Anemia in chronic kidney disease; N18.3 Chronic kidney disease, stage 3 (moderate); I25.10 Atherosclerotic heart disease of native coronary artery without angina pectoris; D72.829 Elevated white blood cell count, unspecified; I16.0 Hypertensive urgency; K21.9 Gastro-esophageal reflux disease without esophagitis; M17.11 Unilateral primary osteoarthritis, right knee; I12.9 Hypertensive chronic kidney disease with stage 1 through stage 4 chronic kidney disease, or unspecified chronic kidney disease; E66.01 Morbid (severe) obesity due to excess calories; E11.22 Type 2 diabetes mellitus with diabetic chronic kidney disease; Z85.3 Personal history of malignant neoplasm of breast; Z98.49 Cataract extraction status, unspecified eye; Z90.49 Acquired absence of other specified parts of digestive tract; Z90.710 Acquired absence of both cervix and uterus; Z88.2 Allergy status to sulfonamides; Z88.8 Allergy status to other drugs, medicaments and biological substances; Z95.5 Presence of coronary angioplasty implant and graft; Z79.4 Long term (current) use of insulin; Z98.42 Cataract extraction status, left eye; Z98.41 Cataract extraction status, right eye
CPT/HCPCS: 36415; 36416; 71045; 72125; 72128; 72131; 76770; 80048; 80053; 81003; 82570; 82607; 82746; 82805; 83880; 83935; 84156; 84300; 85025; 85027; 93005; 93010; 99285; J0360; J1650; J1815; J2405

== ENCOUNTER 2020-02-11 10:54 | Outpatient (CLI) | payer MEDICARE ==
--- NOTE | 2020-02-11 11:31 | MMO ---
Bilateral MAMMO Bilat Diag DDI+BRI. CLINICAL HISTORY: Patient is 75 years old and is seen for screening. The patient has the following family history of breast cancer: sister. The patient has a history of malignant (generic) in the right breast in 2017. The patient has a history of right Lumpectomy in 2017 - malignant - REMOVED 3 LYMPH NODES. VIEWS: The views performed were: bilateral craniocaudal with tomosynthesis and bilateral mediolateral oblique with tomosynthesis. FILMS COMPARED: The present examination has been compared to prior imaging studies performed at This study has been interpreted with the assistance of computer-aided detection. MAMMOGRAM FINDINGS: There are scattered fibroglandular densities. Finding 1: There are stable benign appearing calcifications seen in both breasts. Finding 2: There are stable benign appearing densities seen in both breasts. There are no suspicious masses, suspicious calcifications, or new areas of architectural distortion. IMPRESSION: THERE IS NO MAMMOGRAPHIC EVIDENCE OF MALIGNANCY. A ROUTINE FOLLOW-UP MAMMOGRAM IN 1 YEAR IS RECOMMENDED. THE RESULTS OF THIS EXAM WERE SENT TO THE PATIENT. ACR BI-RADS Category 2 - Benign finding MAMMOGRAPHY NOTE: 1. A negative mammogram report should not delay a biopsy if a dominant of clinically suspicious mass is present. 2. Approximately 10% to 15% of breast cancers are not detected by mammography. 3. Adenosis and dense breasts may obscure an underlying neoplasm. Reported by: BRANDY PINEDA MD Electonically Signed: [id number]
== END 2020-02-11 10:55 | disposition home or self-care (01) ==
LOC: BICMAMMO 10:54
PROVIDERS: ATTEND Internal Medicine Hematology & Oncology
DX: Z08 Encounter for follow-up examination after completed treatment for malignant neoplasm (principal); Z85.3 Personal history of malignant neoplasm of breast
CPT/HCPCS: 77066; G0279; 77063; 77067

== ENCOUNTER 2021-03-01 13:20 | Inpatient (IN) | payer MEDICARE ==
[2021-03-01] MEDS ORDERED: hydrALAZINE 20 MG/ML VIAL ONE (15:54)
[2021-03-01] MEDS ORDERED: Nitroglycerin 0.4 MG TAB (25 Tab Bottle) SL PRN (16:32)
[2021-03-01] MEDS ORDERED: Dextrose 5% in Water 1,000 ML IV PRN (16:34)
[2021-03-01] MEDS ORDERED: Dextrose 50% Abboject 50 ML SYRINGE SLOW IVP PRN (16:34)
[2021-03-01] MEDS ORDERED: HumaLOG 300 UNITS/3 ML VIAL SC PRN ×2 (16:34)
[2021-03-01 18:11] VITALS: BMI 41.4
[2021-03-01] MEDS: Metoprolol Tartrate 100 MG TAB PO SCH (21:11)
[2021-03-01] MEDS: Lantus 1000 UNITS/10 ML VIAL SC SCH (21:13)
[2021-03-02 08:12] LABS: #Eosinphils 0.4 thou/uL (0.0-0.7); #Lymphocytes 1.2 thou/uL (1.20-3.40); #Monocytes 0.9 thou/uL (0.11-0.59); #Neutrophils 13.1 thou/uL (1.40-6.50); %Basophils 0.1 % (0.0-1.0); %Eosinophils 2.8 % (0.0-10.0); %Lymphocytes 7.6 % (21.0-51.0); %Monocytes 5.6 % (0.0-10.0); Hemoglobin 10.4 g/dL (12.0-16.0); Mean Corpuscular HGB CONC 32.5 g/dL (32.0-36.0); Mean Corpuscular Hemoglobin 27.8 pg (27.0-31.0); Mean Corpuscular Volume 85.7 fL (78.0-98.0); Mean Platelet Volume 6.8 fL (7.4-10.4); Platelet Count 378 thou/uL (130-400); RBC Distribution Width 15.5 % (11.5-14.5); Red Blood Cell (RBC) Count 3.73 mill/uL (4.20-5.40); White Blood Cell (WBC) Count 15.6 thou/uL (4.8-10.8)
[2021-03-02 08:31] LABS: ALT (SGPT) 7 U/L (8-55); AST (SGOT) 11 U/L (5-34); Albumin 3.8 g/dL (3.4-4.8); Alkaline Phosphatase 81 U/L (40-110); Anion Gap 16 mmol/L (10-20); BUN (Urea Nitrogen) 28 mg/dL (9.8-20.1); Bilirubin, Total 0.4 mg/dL (0.2-1.2); Calc. Creatinine Clearance 58 mL/min (70-130); Calcium 8.9 mg/dL (7.8-10.44); Carbon Dioxide 22 mmol/L (23-31); Cardiac Risk 2.6 (Less than 4.5); Chloride 95 mmol/L (98-107); Cholesterol 95 mg/dl (< 200 Desired); Globulin 3.1 g/dL (2.4-3.5); Glucose 141 mg/dL (83-110); HDL Cholesterol 36 mg/dL (>60 Neg Risk); LDL Cholesterol, Calculated 42 mg/dL; Potassium 4.3 mmol/L (3.5-5.1); Protein, Total 6.9 g/dL (5.8-8.1); Sodium 129 mmol/L (136-145); Triglycerides 84 mg/dL (Less than 150)
[2021-03-02] MEDS ORDERED: Aspirin 81 mg Enteric Coated Tablet PO SCH (09:00)
[2021-03-02] MEDS ORDERED: Regadenoson 0.4 MG/5 ML SYRINGE ONE (09:17)
[2021-03-02] MEDS: Aspirin 325 mg Enteric Coated Tablet PO SCH (12:35)
[2021-03-02] MEDS: Lantus 1000 UNITS/10 ML VIAL SC SCH ×2 (12:35→22:03)
[2021-03-02] MEDS: Letrozole 2.5 MG TAB PO SCH (12:36)
[2021-03-02] MEDS: Amlodipine 10 MG TAB PO SCH (12:36)
[2021-03-02] MEDS: Clopidogrel Bisulfate 75 MG TAB PO SCH (12:36)
[2021-03-02] MEDS: Ezetimibe 10 MG TAB PO SCH (12:36)
[2021-03-02] MEDS: Metoprolol Tartrate 100 MG TAB PO SCH ×2 (12:38→22:03)
[2021-03-02 12:52] LABS: SARS-CoV-2 PCR by NAA Not Detected (NotDetected)
[2021-03-02] MEDS ORDERED: Furosemide 40 MG/4 ML VIAL SLOW IVP SCH (13:30)
[2021-03-02] MEDS ORDERED: Nystatin Powder 15 GM BOT TOP PRN (21:01)
[2021-03-02] MEDS: Atorvastatin Calcium 40 MG TAB PO SCH (22:03)
[2021-03-03] MEDS ORDERED: hydrALAZINE 20 MG/ML VIAL SLOW IVP PRN (00:46)
[2021-03-03] MEDS: Calcium Carbonate 500 MG ChewTAB PO PRN ×2 (04:23→20:57)
[2021-03-03 05:18] LABS: #Eosinphils 0.5 thou/uL (0.0-0.7); #Lymphocytes 1.2 thou/uL (1.20-3.40); #Monocytes 0.8 thou/uL (0.11-0.59); #Neutrophils 10.3 thou/uL (1.40-6.50); %Basophils 0.1 % (0.0-1.0); %Eosinophils 4.1 % (0.0-10.0); %Lymphocytes 9.1 % (21.0-51.0); %Monocytes 6.1 % (0.0-10.0); %Neutrophils 80.5 % (42.0-75.0); Hemoglobin 10.2 g/dL (12.0-16.0); Mean Corpuscular HGB CONC 33.6 g/dL (32.0-36.0); Mean Corpuscular Hemoglobin 28.4 pg (27.0-31.0); Mean Corpuscular Volume 84.6 fL (78.0-98.0); Mean Platelet Volume 6.8 fL (7.4-10.4); Platelet Count 341 thou/uL (130-400); RBC Distribution Width 15.4 % (11.5-14.5); Red Blood Cell (RBC) Count 3.59 mill/uL (4.20-5.40); White Blood Cell (WBC) Count 12.8 thou/uL (4.8-10.8)
[2021-03-03 05:40] LABS: Anion Gap 17 mmol/L (10-20); BUN (Urea Nitrogen) 38 mg/dL (9.8-20.1); Calc. Creatinine Clearance 46 mL/min (70-130); Calcium 8.3 mg/dL (7.8-10.44); Carbon Dioxide 21 mmol/L (23-31); Chloride 93 mmol/L (98-107); Glucose 77 mg/dL (83-110); Potassium 4.1 mmol/L (3.5-5.1); Sodium 127 mmol/L (136-145)
[2021-03-03] MEDS ORDERED: Furosemide 40 MG/4 ML VIAL SLOW IVP SCH (08:00)
[2021-03-03] MEDS: Ezetimibe 10 MG TAB PO SCH (08:42)
[2021-03-03] MEDS: Aspirin 325 mg Enteric Coated Tablet PO SCH (08:43)
[2021-03-03] MEDS: Lantus 1000 UNITS/10 ML VIAL SC SCH ×2 (08:43→21:04)
[2021-03-03] MEDS: Letrozole 2.5 MG TAB PO SCH (08:43)
[2021-03-03] MEDS: Clopidogrel Bisulfate 75 MG TAB PO SCH (08:43)
[2021-03-03] MEDS: Amlodipine 10 MG TAB PO SCH (09:52)
[2021-03-03] MEDS: Metoprolol Tartrate 100 MG TAB PO SCH ×2 (09:52→20:58)
[2021-03-03] MEDS: Atorvastatin Calcium 40 MG TAB PO SCH (20:58)
[2021-03-04 04:54] LABS: #Eosinphils 0.7 thou/uL (0.0-0.7); #Lymphocytes 1.3 thou/uL (1.20-3.40); #Monocytes 0.9 thou/uL (0.11-0.59); #Neutrophils 12.7 thou/uL (1.40-6.50); %Basophils 0.1 % (0.0-1.0); %Eosinophils 4.4 % (0.0-10.0); %Lymphocytes 8.2 % (21.0-51.0); %Monocytes 5.8 % (0.0-10.0); %Neutrophils 81.5 % (42.0-75.0); Hemoglobin 10.4 g/dL (12.0-16.0); Mean Corpuscular HGB CONC 34.1 g/dL (32.0-36.0); Mean Corpuscular Hemoglobin 28.7 pg (27.0-31.0); Mean Platelet Volume 6.9 fL (7.4-10.4); Platelet Count 382 thou/uL (130-400); RBC Distribution Width 15.4 % (11.5-14.5); Red Blood Cell (RBC) Count 3.64 mill/uL (4.20-5.40); White Blood Cell (WBC) Count 15.6 thou/uL (4.8-10.8)
[2021-03-04 05:10] LABS: ALT (SGPT) 7 U/L (8-55); AST (SGOT) 12 U/L (5-34); Albumin 3.8 g/dL (3.4-4.8); Alkaline Phosphatase 75 U/L (40-110); Anion Gap 19 mmol/L (10-20); BUN (Urea Nitrogen) 39 mg/dL (9.8-20.1); Bilirubin, Total 0.3 mg/dL (0.2-1.2); Calc. Creatinine Clearance 40 mL/min (70-130); Carbon Dioxide 21 mmol/L (23-31); Chloride 93 mmol/L (98-107); Globulin 3.3 g/dL (2.4-3.5); Magnesium 1.6 mg/dL (1.6-2.6); Phosphorus 4.2 mg/dL (2.3-4.7); Protein, Total 7.1 g/dL (5.8-8.1); Sodium 129 mmol/L (136-145)
[2021-03-04 05:13] LABS: Glucose 46 mg/dL (83-110)
[2021-03-04] MEDS: Letrozole 2.5 MG TAB PO SCH (08:44)
[2021-03-04] MEDS: Ezetimibe 10 MG TAB PO SCH (08:45)
[2021-03-04] MEDS: Clopidogrel Bisulfate 75 MG TAB PO SCH (08:45)
[2021-03-04] MEDS: Metoprolol Tartrate 50 MG TAB PO SCH ×2 (08:46→20:14)
[2021-03-04] MEDS: NIFEdipine XL 60 MG TAB PO SCH (08:46)
[2021-03-04] MEDS: hydrALAZINE 25 MG TAB PO SCH ×2 (08:47→20:13)
[2021-03-04] MEDS: Lantus 1000 UNITS/10 ML VIAL SC SCH ×2 (08:47→22:39)
[2021-03-04] MEDS: Heparin 5,000 UNITS/ML VIAL SC SCH ×2 (08:47→20:30)
[2021-03-04] MEDS: Aspirin 81 mg Enteric Coated Tablet PO SCH (08:47)
[2021-03-04] MEDS: Sodium Chloride 0.9% 1,000 ML IV SCH (08:48)
[2021-03-04] MEDS: Cefepime 1 GM in Sodium Chloride 0.9% 100 ML IVPB SCH ×2 (08:48→20:29)
[2021-03-04 10:07] LABS: Bacteria/HPF None Seen HPF (None Seen); Bilirubin Negative (Negative); Blood, Urine Negative (Negative); Clarity Clear (Clear); Glucose, Urine (Dipstick) Normal (Negative); Ketone, Urine Negative (Negative); Leukocyte 75 Leu/uL (Negative); Nitrite Negative (Negative); Protein, Urine (Dipstick) 100 mg/dL (Neg-Trace); RBC/HPF 0-3 HPF (0-3); Specific Gravity, Urine 1.012 (1.002-1.036); Transitional Epithelial 0-3 HPF (None Seen); Urobilinogen Normal mg/dL (Less than 2)
[2021-03-04 10:16] LABS: Legionella Urinary Ag Negative (Negative); Strep pneumo Urine Ag NEGATIVE (NEGATIVE)
[2021-03-04] MEDS: Atorvastatin Calcium 40 MG TAB PO SCH (20:12)
[2021-03-05] MEDS: Calcium Carbonate 500 MG ChewTAB PO PRN (02:08)
[2021-03-05] MEDS: Sodium Chloride 0.9% 1,000 ML IV SCH (04:16)
[2021-03-05 05:19] LABS: #Eosinphils 0.7 thou/uL (0.0-0.7); #Lymphocytes 1.1 thou/uL (1.20-3.40); #Monocytes 0.8 thou/uL (0.11-0.59); #Neutrophils 9.9 thou/uL (1.40-6.50); %Basophils 0.3 % (0.0-1.0); %Eosinophils 5.4 % (0.0-10.0); %Lymphocytes 8.8 % (21.0-51.0); %Monocytes 6.2 % (0.0-10.0); %Neutrophils 79.3 % (42.0-75.0); Mean Corpuscular HGB CONC 33.5 g/dL (32.0-36.0); Mean Corpuscular Hemoglobin 28.1 pg (27.0-31.0); Mean Corpuscular Volume 83.8 fL (78.0-98.0); Mean Platelet Volume 6.8 fL (7.4-10.4); Platelet Count 338 thou/uL (130-400); RBC Distribution Width 15.3 % (11.5-14.5); Red Blood Cell (RBC) Count 3.55 mill/uL (4.20-5.40); White Blood Cell (WBC) Count 12.5 thou/uL (4.8-10.8)
[2021-03-05 06:28] LABS: Anion Gap 15 mmol/L (10-20); BUN (Urea Nitrogen) 36 mg/dL (9.8-20.1); Calc. Creatinine Clearance 51 mL/min (70-130); Calcium 8.6 mg/dL (7.8-10.44); Carbon Dioxide 20 mmol/L (23-31); Chloride 95 mmol/L (98-107); Magnesium 1.7 mg/dL (1.6-2.6); Phosphorus 3.4 mg/dL (2.3-4.7); Sodium 126 mmol/L (136-145)
[2021-03-05 06:34] LABS: Glucose 49 mg/dL (83-110)
[2021-03-05] MEDS: Letrozole 2.5 MG TAB PO SCH (08:41)
[2021-03-05] MEDS: Ezetimibe 10 MG TAB PO SCH (08:41)
[2021-03-05] MEDS: NIFEdipine XL 60 MG TAB PO SCH (08:41)
[2021-03-05] MEDS: Metoprolol Tartrate 50 MG TAB PO SCH (08:41)
[2021-03-05] MEDS: Aspirin 81 mg Enteric Coated Tablet PO SCH (08:41)
[2021-03-05] MEDS: Clopidogrel Bisulfate 75 MG TAB PO SCH (08:41)
[2021-03-05] MEDS: hydrALAZINE 25 MG TAB PO SCH (08:42)
[2021-03-05] MEDS: Heparin 5,000 UNITS/ML VIAL SC SCH (08:42)
[2021-03-05] MEDS: Cefepime 1 GM in Sodium Chloride 0.9% 100 ML IVPB SCH (08:42)
[2021-03-05 10:07] LABS: Creatinine, Urine 60.12 mg/dL (47-110); Sodium, Urine Less than 20 mmol/L (Not Available)
[2021-03-05 11:47] VITALS: BP 127/61; TEMP 98.1
== END 2021-03-05 14:50 | disposition home or self-care (01) | DRG 291 ==
LOC: ERS 13:20 → 2SW 15:28 → OBSVTOIN 03-02 17:34
PROVIDERS: ADMIT Family Medicine; ATTEND Internal Medicine
DX: I11.0 Hypertensive heart disease with heart failure (principal); J96.01 Acute respiratory failure with hypoxia; J18.9 Pneumonia, unspecified organism; E87.1 Hypo-osmolality and hyponatremia; Z68.41 Body mass index [BMI] 40.0-44.9, adult; J44.0 Chronic obstructive pulmonary disease with (acute) lower respiratory infection; N17.9 Acute kidney failure, unspecified; Z20.822 Contact with and (suspected) exposure to COVID-19; I50.33 Acute on chronic diastolic (congestive) heart failure; N18.30 Chronic kidney disease, stage 3 unspecified; E11.22 Type 2 diabetes mellitus with diabetic chronic kidney disease; K21.9 Gastro-esophageal reflux disease without esophagitis; E78.5 Hyperlipidemia, unspecified; E78.00 Pure hypercholesterolemia, unspecified; I25.110 Atherosclerotic heart disease of native coronary artery with unstable angina pectoris; E66.9 Obesity, unspecified; E11.649 Type 2 diabetes mellitus with hypoglycemia without coma; Z95.5 Presence of coronary angioplasty implant and graft; Z88.2 Allergy status to sulfonamides; Z88.8 Allergy status to other drugs, medicaments and biological substances; Z91.018 Allergy to other foods; Z79.899 Other long term (current) drug therapy; Z79.02 Long term (current) use of antithrombotics/antiplatelets; Z79.4 Long term (current) use of insulin; Z79.82 Long term (current) use of aspirin; Z90.49 Acquired absence of other specified parts of digestive tract; Z85.3 Personal history of malignant neoplasm of breast; Z98.42 Cataract extraction status, left eye; Z98.41 Cataract extraction status, right eye; Z90.710 Acquired absence of both cervix and uterus; Z82.49 Family history of ischemic heart disease and other diseases of the circulatory system; I25.2 Old myocardial infarction; Z90.11 Acquired absence of right breast and nipple
CPT/HCPCS: 36415; 36416; 71046; 78452; 80048; 80053; 80061; 81003; 81015; 82570; 83735; 83880; 83935; 84100; 84300; 84443; 85025; 87449; 87899; 93005; 93017; 93306; 94760; 96374; 96375; 96376; A9500; G0378; J0360; J0692; J1644; J1815; J1940; J1956; J2785; J3490; U0003; U0005

== ENCOUNTER 2021-03-14 08:11 | Inpatient (IN) | payer MEDICARE ==
[2021-03-14 08:41] LABS: #Eosinphils 0.4 thou/uL (0.0-0.7); #Lymphocytes 0.7 thou/uL (1.20-3.40); #Monocytes 0.6 thou/uL (0.11-0.59); #Neutrophils 13.6 thou/uL (1.40-6.50); %Basophils 0.3 % (0.0-1.0); %Eosinophils 2.9 % (0.0-10.0); %Lymphocytes 4.8 % (21.0-51.0); Hemoglobin 9.3 g/dL (12.0-16.0); Mean Corpuscular Hemoglobin 26.1 pg (27.0-31.0); Mean Corpuscular Volume 84.1 fL (78.0-98.0); Mean Platelet Volume 6.5 fL (7.4-10.4); Platelet Count 402 thou/uL (130-400); RBC Distribution Width 15.6 % (11.5-14.5); Red Blood Cell (RBC) Count 3.58 mill/uL (4.20-5.40); White Blood Cell (WBC) Count 15.4 thou/uL (4.8-10.8)
[2021-03-14 09:00] LABS: Actual Bicarbonate (HCO3a) 22.5 mEq/L (22-28); Analyzer IN Cardio ER; Base Excess (BEa) -3.1 mEq/L (-2.0 to +3.0); CO2 Tension 42.9 mmHg (35.0-45.0); Calcium, Ionized (arterial) 1.14 mmol/L (1.12-1.30); Carboxyhemoglobin (COHb) 0.1 gm% (0.0-3.0); Hemoglobin (Hb) 9.6 g/dL (12.0-16.0); O2 Tension (PaO2), arterial 63.1 mmHg (> 70.0); pH, Arterial 7.34 (7.35-7.45)
[2021-03-14 09:01] LABS: ALV-art Gradient 382.375 mmHg (0-20); Puncture Site LRA
[2021-03-14 09:06] LABS: ALT (SGPT) 14 U/L (8-55); AST (SGOT) 24 U/L (5-34); Albumin 3.7 g/dL (3.4-4.8); Alkaline Phosphatase 79 U/L (40-110); Anion Gap 15 mmol/L (10-20); BUN (Urea Nitrogen) 18 mg/dL (9.8-20.1); Bilirubin, Total 0.4 mg/dL (0.2-1.2); Calc. Creatinine Clearance 0 mL/min (70-130); Carbon Dioxide 22 mmol/L (23-31); Chloride 91 mmol/L (98-107); Globulin 3.3 g/dL (2.4-3.5); Glucose 108 mg/dL (83-110); Potassium 4.9 mmol/L (3.5-5.1); Sodium 123 mmol/L (136-145)
[2021-03-14] MEDS ORDERED: Furosemide 40 MG/4 ML VIAL ONE (09:40)
[2021-03-14] MEDS ORDERED: Iopamidol-370 76% 500 ML 1 ML ONE (10:01)
[2021-03-14 10:12] LABS: SARS-CoV-2 NAA Rapid Test Not Detected (NotDetected)
[2021-03-14] MEDS ORDERED: Ondansetron PF 4 MG/2 ML Vial IVP PRN (11:21)
[2021-03-14] MEDS ORDERED: Dextrose 5% in Water 1,000 ML IV PRN (11:32)
[2021-03-14] MEDS ORDERED: Dextrose 50% Abboject 50 ML SYRINGE SLOW IVP PRN (11:32)
[2021-03-14] MEDS ORDERED: NIFEdipine XL 60 MG TAB PO SCH (12:15)
[2021-03-14] MEDS ORDERED: Nitroglycerin 50 MG/250 ML BOT 250 ML IVPB SCH (13:15)
[2021-03-14] MEDS ORDERED: Furosemide 40 MG/4 ML VIAL SLOW IVP SCH (14:00)
[2021-03-14] MEDS ORDERED: Metolazone 5 MG TAB PO SCH (16:00)
[2021-03-14] MEDS ORDERED: hydrALAZINE 25 MG TAB PO SCH (17:00)
[2021-03-14] MEDS: hydrALAZINE 25 MG TAB PO SCH (23:32)
[2021-03-14] MEDS: Famotidine/PF 20 mg/2ml Vial SLOW IVP SCH (23:32)
[2021-03-14] MEDS: Furosemide 40 MG/4 ML VIAL SLOW IVP SCH (23:32)
[2021-03-15 03:56] LABS: #Eosinphils 0.5 thou/uL (0.0-0.7); #Monocytes 0.7 thou/uL (0.11-0.59); #Neutrophils 12.2 thou/uL (1.40-6.50); %Basophils 0.3 % (0.0-1.0); %Eosinophils 3.8 % (0.0-10.0); %Lymphocytes 6.6 % (21.0-51.0); %Monocytes 4.8 % (0.0-10.0); %Neutrophils 84.5 % (42.0-75.0); Hemoglobin 8.7 g/dL (12.0-16.0); Mean Corpuscular HGB CONC 31.9 g/dL (32.0-36.0); Mean Corpuscular Hemoglobin 26.7 pg (27.0-31.0); Mean Corpuscular Volume 83.8 fL (78.0-98.0); Mean Platelet Volume 6.6 fL (7.4-10.4); Platelet Count 375 thou/uL (130-400); RBC Distribution Width 15.5 % (11.5-14.5); Red Blood Cell (RBC) Count 3.27 mill/uL (4.20-5.40); White Blood Cell (WBC) Count 14.5 thou/uL (4.8-10.8)
[2021-03-15 04:21] LABS: Anion Gap 10 mmol/L (10-20); BUN (Urea Nitrogen) 19 mg/dL (9.8-20.1); Calc. Creatinine Clearance 59 mL/min (70-130); Calcium 8.1 mg/dL (7.8-10.44); Carbon Dioxide 27 mmol/L (23-31); Chloride 91 mmol/L (98-107); Glucose 166 mg/dL (83-110); Potassium 4.3 mmol/L (3.5-5.1); Sodium 124 mmol/L (136-145)
[2021-03-15] MEDS: Furosemide 40 MG/4 ML VIAL SLOW IVP SCH ×2 (06:41→16:33)
[2021-03-15] MEDS ORDERED: NIFEdipine XL 60 MG TAB PO SCH (09:00)
[2021-03-15] MEDS ORDERED: NIFEdipine XL 90 MG TAB PO SCH (09:00)
[2021-03-15] MEDS: hydrALAZINE 25 MG TAB PO SCH ×2 (09:20→15:35)
[2021-03-15] MEDS: Clopidogrel Bisulfate 75 MG TAB PO SCH (09:22)
[2021-03-15] MEDS: Enoxaparin Sodium 40 MG/0.4 ML SYRINGE SC SCH (09:22)
[2021-03-15] MEDS: Famotidine/PF 20 mg/2ml Vial SLOW IVP SCH (09:22)
[2021-03-15] MEDS ORDERED: Labetalol 100 MG TAB PO STA (09:24)
[2021-03-15] MEDS ORDERED: Labetalol 100 MG TAB PO SCH ×2 (09:30→21:00)
[2021-03-15] MEDS ORDERED: Tolvaptan 15 MG TAB PO SCH (11:00)
[2021-03-15] MEDS: Acetaminophen 325 MG TAB PO PRN (11:59)
[2021-03-15] MEDS ORDERED: TOLVAPTAN 30 MG TAB PO SCH ×2 (12:00)
[2021-03-15] MEDS: HumaLOG 300 UNITS/3 ML VIAL SC PRN ×3 (12:00→20:56)
[2021-03-15] MEDS: HYDROcodone/Acetaminophen 5/325 mg Tablet PO PRN (16:41)
[2021-03-15 17:27] LABS: Anion Gap 14 mmol/L (10-20); BUN (Urea Nitrogen) 24 mg/dL (9.8-20.1); Calc. Creatinine Clearance 39 mL/min (70-130); Calcium 8.3 mg/dL (7.8-10.44); Carbon Dioxide 24 mmol/L (23-31); Chloride 89 mmol/L (98-107); Glucose 238 mg/dL (83-110); Potassium 4.5 mmol/L (3.5-5.1); Sodium 122 mmol/L (136-145)
[2021-03-15] MEDS: Famotidine 20 MG TAB PO SCH (20:43)
[2021-03-15] MEDS ORDERED: Furosemide 40 MG/4 ML VIAL SLOW IVP SCH (21:00)
[2021-03-16 04:42] LABS: Ferritin 49.45 ng/mL (10-291); Thyroid Stimulating Hormone 1.7899 uIU/mL (0.35-4.94)
[2021-03-16] MEDS: HumaLOG 300 UNITS/3 ML VIAL SC PRN ×4 (06:17→21:54)
[2021-03-16 07:32] LABS: Albumin 3.3 g/dL (3.4-4.8); Anion Gap 14 mmol/L (10-20); BUN (Urea Nitrogen) 26 mg/dL (9.8-20.1); BUN/Creatinine Ratio 14.05; Calc. Creatinine Clearance 44 mL/min (70-130); Calcium 8.1 mg/dL (7.8-10.44); Carbon Dioxide 24 mmol/L (23-31); Chloride 88 mmol/L (98-107); Glucose 173 mg/dL (83-110); Phosphorus 4.3 mg/dL (2.3-4.7); Potassium 4.5 mmol/L (3.5-5.1); Sodium 121 mmol/L (136-145)
[2021-03-16] MEDS: Famotidine 20 MG TAB PO SCH ×2 (08:58→21:56)
[2021-03-16] MEDS: Labetalol 100 MG TAB PO SCH ×2 (08:58→21:56)
[2021-03-16] MEDS: Clopidogrel Bisulfate 75 MG TAB PO SCH (08:58)
[2021-03-16] MEDS: Enoxaparin Sodium 40 MG/0.4 ML SYRINGE SC SCH (08:58)
[2021-03-16] MEDS ORDERED: Tolvaptan 15 MG TAB PO SCH (09:00)
[2021-03-16 09:16] LABS: Hemoglobin 9.7 g/dL (12.0-16.0); Mean Corpuscular HGB CONC 32.4 g/dL (32.0-36.0); Mean Corpuscular Hemoglobin 27.2 pg (27.0-31.0); Mean Corpuscular Volume 83.8 fL (78.0-98.0); Mean Platelet Volume 6.6 fL (7.4-10.4); Platelet Count 396 thou/uL (130-400); RBC Distribution Width 15.9 % (11.5-14.5); Red Blood Cell (RBC) Count 3.58 mill/uL (4.20-5.40); White Blood Cell (WBC) Count 16.2 thou/uL (4.8-10.8)
[2021-03-16] MEDS: HYDROcodone/Acetaminophen 5/325 mg Tablet PO PRN (09:46)
[2021-03-16] MEDS: TOLVAPTAN 30 MG TAB PO SCH (09:48)
[2021-03-16] MEDS ORDERED: NIFEdipine XL 30 MG TAB PO SCH (13:45)
[2021-03-16] MEDS ORDERED: Furosemide 40 MG/4 ML VIAL SLOW IVP SCH (13:45)
[2021-03-16] MEDS: HYDROcodone/Acetaminophen 10/325 mg Tablet PO PRN (14:25)
[2021-03-16] MEDS: hydrALAZINE 25 MG TAB PO SCH ×2 (15:42→22:46)
[2021-03-17] MEDS: HYDROcodone/Acetaminophen 10/325 mg Tablet PO PRN (02:05)
[2021-03-17 03:47] LABS: Hemoglobin 8.6 g/dL (12.0-16.0); Mean Corpuscular HGB CONC 33.3 g/dL (32.0-36.0); Mean Corpuscular Hemoglobin 27.8 pg (27.0-31.0); Mean Corpuscular Volume 83.6 fL (78.0-98.0); Mean Platelet Volume 6.3 fL (7.4-10.4); Platelet Count 366 thou/uL (130-400); RBC Distribution Width 15.8 % (11.5-14.5); Red Blood Cell (RBC) Count 3.08 mill/uL (4.20-5.40); White Blood Cell (WBC) Count 14.2 thou/uL (4.8-10.8)
[2021-03-17 04:08] LABS: Anion Gap 14 mmol/L (10-20); BUN (Urea Nitrogen) 31 mg/dL (9.8-20.1); BUN/Creatinine Ratio 15.58; Calc. Creatinine Clearance 41 mL/min (70-130); Calcium 7.9 mg/dL (7.8-10.44); Carbon Dioxide 25 mmol/L (23-31); Chloride 86 mmol/L (98-107); Glucose 179 mg/dL (83-110); Phosphorus 4.4 mg/dL (2.3-4.7); Potassium 4.8 mmol/L (3.5-5.1); Sodium 120 mmol/L (136-145)
[2021-03-17] MEDS: HumaLOG 300 UNITS/3 ML VIAL SC PRN ×4 (06:47→22:23)
[2021-03-17] MEDS: Albumin 25% 25 GM/100 ML BOT IVPB SCH ×2 (08:02→13:26)
[2021-03-17] MEDS ORDERED: NIFEdipine XL 30 MG TAB PO SCH (09:00)
[2021-03-17] MEDS: Clopidogrel Bisulfate 75 MG TAB PO SCH (09:17)
[2021-03-17] MEDS: Enoxaparin Sodium 40 MG/0.4 ML SYRINGE SC SCH (09:17)
[2021-03-17] MEDS: hydrALAZINE 25 MG TAB PO SCH ×3 (09:18→20:08)
[2021-03-17] MEDS: Famotidine 20 MG TAB PO SCH ×2 (09:18→20:09)
[2021-03-17] MEDS: Sodium Chloride 1 GM TAB PO SCH ×3 (09:19→20:17)
[2021-03-17] MEDS: Labetalol 100 MG TAB PO SCH ×2 (09:19→20:04)
[2021-03-17] MEDS: TOLVAPTAN 30 MG TAB PO SCH (09:19)
[2021-03-17] MEDS: Acetaminophen 325 MG TAB PO PRN ×2 (15:41→20:04)
[2021-03-17 17:50] LABS: Anion Gap 19 mmol/L (10-20); BUN (Urea Nitrogen) 36 mg/dL (9.8-20.1); Calc. Creatinine Clearance 36 mL/min (70-130); Calcium 8.4 mg/dL (7.8-10.44); Carbon Dioxide 23 mmol/L (23-31); Chloride 87 mmol/L (98-107); Glucose 198 mg/dL (83-110); Potassium 4.9 mmol/L (3.5-5.1); Sodium 124 mmol/L (136-145)
[2021-03-18 05:06] LABS: Albumin 3.4 g/dL (3.4-4.8); Anion Gap 16 mmol/L (10-20); BUN (Urea Nitrogen) 39 mg/dL (9.8-20.1); BUN/Creatinine Ratio 19.12; Calc. Creatinine Clearance 39 mL/min (70-130); Calcium 8.3 mg/dL (7.8-10.44); Carbon Dioxide 24 mmol/L (23-31); Chloride 88 mmol/L (98-107); Glucose 151 mg/dL (83-110); Phosphorus 4.5 mg/dL (2.3-4.7); Potassium 4.6 mmol/L (3.5-5.1); Sodium 123 mmol/L (136-145)
[2021-03-18] MEDS: HumaLOG 300 UNITS/3 ML VIAL SC PRN ×3 (06:29→17:39)
[2021-03-18] MEDS ORDERED: NIFEdipine XL 30 MG TAB PO SCH ×2 (09:00→16:00)
[2021-03-18] MEDS: Clopidogrel Bisulfate 75 MG TAB PO SCH (09:02)
[2021-03-18] MEDS: Labetalol 100 MG TAB PO SCH ×2 (09:03→20:46)
[2021-03-18] MEDS: hydrALAZINE 25 MG TAB PO SCH ×3 (09:03→20:41)
[2021-03-18] MEDS: Enoxaparin Sodium 30 MG/0.3 ML SYRINGE SC SCH (09:03)
[2021-03-18] MEDS: Famotidine 20 MG TAB PO SCH (09:03)
[2021-03-18] MEDS: TOLVAPTAN 30 MG TAB PO SCH (09:03)
[2021-03-18] MEDS: Sodium Chloride 1 GM TAB PO SCH (09:04)
[2021-03-18] MEDS ORDERED: Furosemide 40 MG/4 ML VIAL SLOW IVP SCH (09:15)
[2021-03-18] MEDS: Iron, Sodium Ferric Gluconate 250 MG in Sodium Chloride 0.9% 250 ML 250 ML IVPB SCH ×2 (12:13→20:39)
[2021-03-18 16:36] LABS: Anion Gap 16 mmol/L (10-20); BUN (Urea Nitrogen) 39 mg/dL (9.8-20.1); Calc. Creatinine Clearance 39 mL/min (70-130); Calcium 8.6 mg/dL (7.8-10.44); Carbon Dioxide 24 mmol/L (23-31); Chloride 86 mmol/L (98-107); Glucose 280 mg/dL (83-110); Potassium 4.5 mmol/L (3.5-5.1); Sodium 121 mmol/L (136-145)
[2021-03-19 04:46] LABS: Hemoglobin 7.9 g/dL (12.0-16.0); Mean Corpuscular HGB CONC 32.1 g/dL (32.0-36.0); Mean Corpuscular Hemoglobin 26.9 pg (27.0-31.0); Mean Corpuscular Volume 83.9 fL (78.0-98.0); Mean Platelet Volume 6.6 fL (7.4-10.4); Platelet Count 413 thou/uL (130-400); RBC Distribution Width 15.7 % (11.5-14.5); Red Blood Cell (RBC) Count 2.95 mill/uL (4.20-5.40); White Blood Cell (WBC) Count 12.4 thou/uL (4.8-10.8)
[2021-03-19 05:07] LABS: Albumin 3.4 g/dL (3.4-4.8); Anion Gap 17 mmol/L (10-20); BUN (Urea Nitrogen) 43 mg/dL (9.8-20.1); BUN/Creatinine Ratio 21.83; Calc. Creatinine Clearance 40 mL/min (70-130); Calcium 8.6 mg/dL (7.8-10.44); Carbon Dioxide 23 mmol/L (23-31); Chloride 89 mmol/L (98-107); Glucose 182 mg/dL (83-110); Phosphorus 4.2 mg/dL (2.3-4.7); Potassium 4.5 mmol/L (3.5-5.1); Sodium 124 mmol/L (136-145)
[2021-03-19] MEDS: Furosemide 20 MG/2 ML VIAL SLOW IVP SCH ×2 (05:39→15:48)
[2021-03-19] MEDS: HumaLOG 300 UNITS/3 ML VIAL SC PRN ×3 (06:24→17:38)
[2021-03-19] MEDS: Enoxaparin Sodium 30 MG/0.3 ML SYRINGE SC SCH (08:20)
[2021-03-19] MEDS: NIFEdipine XL 30 MG TAB PO SCH (08:20)
[2021-03-19] MEDS: Labetalol 100 MG TAB PO SCH ×2 (08:20→21:16)
[2021-03-19] MEDS: Clopidogrel Bisulfate 75 MG TAB PO SCH (08:20)
[2021-03-19] MEDS: hydrALAZINE 25 MG TAB PO SCH ×3 (08:20→21:14)
[2021-03-19] MEDS: Famotidine 20 MG TAB PO SCH (08:20)
[2021-03-19] MEDS ORDERED: NIFEdipine XL 60 MG TAB PO SCH (09:00)
[2021-03-19] MEDS: HYDROcodone/Acetaminophen 10/325 mg Tablet PO PRN (11:45)
[2021-03-19] MEDS ORDERED: Polyethylene Glycol 3350 17 GM Packet PO SCH (11:45)
[2021-03-19 16:40] LABS: Actual Bicarbonate (HCO3a) 24.7 mEq/L (22-28); Base Excess (BEa) 0.1 mEq/L (-2.0 to +3.0); CO2 Tension 39.7 mmHg (35.0-45.0); Calcium, Ionized (arterial) 1.07 mmol/L (1.12-1.30); Carboxyhemoglobin (COHb) 0.5 gm% (0.0-3.0); Hemoglobin (Hb) 9.7 g/dL (12.0-16.0); O2 Tension (PaO2), arterial 65.2 mmHg (> 70.0); Potassium - ABG Lab 4.57 mmol/L (3.70-5.30); pH, Arterial 7.41 (7.35-7.45)
[2021-03-19] MEDS: Ferrous Sulfate 325 MG TAB PO SCH (17:38)
[2021-03-19] MEDS ORDERED: Loratadine 10 MG TAB PO SCH (18:30)
[2021-03-19 18:39] LABS: ALV-art Gradient 113.335 mmHg (0-20)
[2021-03-19] MEDS ORDERED: HumaLOG 300 UNITS/3 ML VIAL SC PRN (23:41)
[2021-03-20 05:36] LABS: #Eosinphils 0.5 thou/uL (0.0-0.7); #Lymphocytes 0.7 thou/uL (1.20-3.40); #Monocytes 1.2 thou/uL (0.11-0.59); #Neutrophils 10.6 thou/uL (1.40-6.50); %Basophils 0.3 % (0.0-1.0); %Eosinophils 3.9 % (0.0-10.0); %Lymphocytes 5.2 % (21.0-51.0); %Monocytes 9.2 % (0.0-10.0); %Neutrophils 81.3 % (42.0-75.0); Mean Corpuscular HGB CONC 31.6 g/dL (32.0-36.0); Mean Corpuscular Hemoglobin 26.6 pg (27.0-31.0); Mean Corpuscular Volume 84.1 fL (78.0-98.0); Mean Platelet Volume 6.8 fL (7.4-10.4); Platelet Count 447 thou/uL (130-400); RBC Distribution Width 15.8 % (11.5-14.5); Red Blood Cell (RBC) Count 3.02 mill/uL (4.20-5.40)
[2021-03-20 05:58] LABS: Albumin 3.4 g/dL (3.4-4.8); Anion Gap 17 mmol/L (10-20); BUN (Urea Nitrogen) 47 mg/dL (9.8-20.1); BUN/Creatinine Ratio 21.86; Calc. Creatinine Clearance 37 mL/min (70-130); Calcium 9.3 mg/dL (7.8-10.44); Carbon Dioxide 25 mmol/L (23-31); Chloride 89 mmol/L (98-107); Glucose 182 mg/dL (83-110); Phosphorus 4.9 mg/dL (2.3-4.7); Potassium 4.6 mmol/L (3.5-5.1); Sodium 126 mmol/L (136-145)
[2021-03-20] MEDS: HumaLOG 300 UNITS/3 ML VIAL SC PRN ×3 (06:37→17:28)
[2021-03-20] MEDS: Furosemide 20 MG/2 ML VIAL SLOW IVP SCH ×2 (06:37→15:07)
[2021-03-20] MEDS: hydrALAZINE 25 MG TAB PO SCH ×3 (08:49→18:23)
[2021-03-20] MEDS: Clopidogrel Bisulfate 75 MG TAB PO SCH (08:50)
[2021-03-20] MEDS: Famotidine 20 MG TAB PO SCH (08:50)
[2021-03-20] MEDS: Folic Acid 1 MG TAB PO SCH (08:50)
[2021-03-20] MEDS: Loratadine 10 MG TAB PO SCH (08:50)
[2021-03-20] MEDS: Labetalol 100 MG TAB PO SCH ×2 (08:50→21:43)
[2021-03-20] MEDS: NIFEdipine XL 30 MG TAB PO SCH (08:51)
[2021-03-20] MEDS: Ferrous Sulfate 325 MG TAB PO SCH ×2 (08:51→17:28)
[2021-03-20] MEDS: Polyethylene Glycol 3350 17 GM Packet PO SCH (08:51)
[2021-03-20] MEDS: Enoxaparin Sodium 30 MG/0.3 ML SYRINGE SC SCH (08:51)
[2021-03-20] MEDS: DOBUTamine 500 mg/250 ml 250 ML IVPB SCH (17:37)
[2021-03-20] MEDS: Lantus 1000 UNITS/10 ML VIAL SC SCH (22:39)
[2021-03-20] MEDS ORDERED: Lantus 1000 UNITS/10 ML VIAL SC SCH (23:00)
[2021-03-21 04:56] LABS: #Eosinphils 0.7 thou/uL (0.0-0.7); #Lymphocytes 0.8 thou/uL (1.20-3.40); #Monocytes 1.1 thou/uL (0.11-0.59); %Basophils 0.3 % (0.0-1.0); %Eosinophils 5.8 % (0.0-10.0); %Lymphocytes 6.8 % (21.0-51.0); %Monocytes 9.3 % (0.0-10.0); %Neutrophils 77.9 % (42.0-75.0); Hemoglobin 8.1 g/dL (12.0-16.0); Mean Corpuscular HGB CONC 31.9 g/dL (32.0-36.0); Mean Corpuscular Hemoglobin 26.5 pg (27.0-31.0); Mean Corpuscular Volume 83.2 fL (78.0-98.0); Mean Platelet Volume 7.5 fL (7.4-10.4); Platelet Count 392 thou/uL (130-400); Red Blood Cell (RBC) Count 3.06 mill/uL (4.20-5.40); White Blood Cell (WBC) Count 11.5 thou/uL (4.8-10.8)
[2021-03-21 05:17] LABS: Albumin 3.2 g/dL (3.4-4.8); Anion Gap 18 mmol/L (10-20); BUN (Urea Nitrogen) 49 mg/dL (9.8-20.1); BUN/Creatinine Ratio 24.02; Calc. Creatinine Clearance 37 mL/min (70-130); Calcium 9.3 mg/dL (7.8-10.44); Carbon Dioxide 22 mmol/L (23-31); Chloride 91 mmol/L (98-107); Glucose 200 mg/dL (83-110); Phosphorus 4.2 mg/dL (2.3-4.7); Potassium 5.1 mmol/L (3.5-5.1); Sodium 126 mmol/L (136-145)
[2021-03-21] MEDS: Furosemide 20 MG/2 ML VIAL SLOW IVP SCH ×2 (06:08→13:43)
[2021-03-21] MEDS: HumaLOG 300 UNITS/3 ML VIAL SC PRN ×3 (06:09→17:46)
[2021-03-21] MEDS ORDERED: EPOETIN ALFA-EPBX (ESRD) 10,000 UNIT/ML VIAL SC SCH (07:15)
[2021-03-21] MEDS: Enoxaparin Sodium 30 MG/0.3 ML SYRINGE SC SCH (09:13)
[2021-03-21] MEDS: Folic Acid 1 MG TAB PO SCH (09:14)
[2021-03-21] MEDS: hydrALAZINE 25 MG TAB PO SCH ×3 (09:14→21:35)
[2021-03-21] MEDS: Clopidogrel Bisulfate 75 MG TAB PO SCH (09:15)
[2021-03-21] MEDS: NIFEdipine XL 30 MG TAB PO SCH (09:15)
[2021-03-21] MEDS: Ferrous Sulfate 325 MG TAB PO SCH ×2 (09:15→15:28)
[2021-03-21] MEDS: Loratadine 10 MG TAB PO SCH (09:15)
[2021-03-21] MEDS: Labetalol 100 MG TAB PO SCH ×2 (09:15→21:37)
[2021-03-21] MEDS: Famotidine 20 MG TAB PO SCH (09:15)
[2021-03-21] MEDS: Polyethylene Glycol 3350 17 GM Packet PO SCH (09:21)
[2021-03-21] MEDS: Iron, Sodium Ferric Gluconate 250 MG in Sodium Chloride 0.9% 250 ML 250 ML IVPB SCH (09:31)
[2021-03-21] MEDS: DOBUTamine 500 mg/250 ml 250 ML IVPB SCH (11:07)
[2021-03-21] MEDS ORDERED: Dextrose 5% in Water 1,000 ML IV PRN (18:16)
[2021-03-21] MEDS ORDERED: Dextrose 50% Abboject 50 ML SYRINGE SLOW IVP PRN (18:16)
[2021-03-21] MEDS: Lantus 1000 UNITS/10 ML VIAL SC SCH (21:37)
[2021-03-22] MEDS: DOBUTamine 500 mg/250 ml 250 ML IVPB SCH (03:06)
[2021-03-22] MEDS: Furosemide 20 MG/2 ML VIAL SLOW IVP SCH ×2 (06:05→16:31)
[2021-03-22 07:23] LABS: #Eosinphils 1.1 thou/uL (0.0-0.7); #Monocytes 1.1 thou/uL (0.11-0.59); #Neutrophils 7.2 thou/uL (1.40-6.50); %Basophils 0.4 % (0.0-1.0); %Eosinophils 10.8 % (0.0-10.0); %Lymphocytes 9.6 % (21.0-51.0); %Monocytes 10.7 % (0.0-10.0); %Neutrophils 68.5 % (42.0-75.0); Hemoglobin 8.8 g/dL (12.0-16.0); Mean Corpuscular HGB CONC 32.3 g/dL (32.0-36.0); Mean Corpuscular Hemoglobin 27.1 pg (27.0-31.0); Mean Corpuscular Volume 84.1 fL (78.0-98.0); Mean Platelet Volume 7.6 fL (7.4-10.4); Platelet Count 288 thou/uL (130-400); RBC Distribution Width 16.5 % (11.5-14.5); Red Blood Cell (RBC) Count 3.25 mill/uL (4.20-5.40); White Blood Cell (WBC) Count 10.5 thou/uL (4.8-10.8)
[2021-03-22] MEDS: Enoxaparin Sodium 30 MG/0.3 ML SYRINGE SC SCH (08:57)
[2021-03-22] MEDS: Famotidine 20 MG TAB PO SCH (08:57)
[2021-03-22] MEDS: Ferrous Sulfate 325 MG TAB PO SCH ×2 (08:57→16:31)
[2021-03-22] MEDS: Clopidogrel Bisulfate 75 MG TAB PO SCH (08:57)
[2021-03-22] MEDS: NIFEdipine XL 30 MG TAB PO SCH (08:58)
[2021-03-22] MEDS: Loratadine 10 MG TAB PO SCH (08:58)
[2021-03-22] MEDS: Folic Acid 1 MG TAB PO SCH (08:58)
[2021-03-22] MEDS: Polyethylene Glycol 3350 17 GM Packet PO SCH (08:58)
[2021-03-22] MEDS: Labetalol 100 MG TAB PO SCH ×2 (08:58→21:32)
[2021-03-22] MEDS: hydrALAZINE 25 MG TAB PO SCH ×3 (08:58→21:31)
[2021-03-22 10:52] LABS: ALT (SGPT) 8 U/L (8-55); AST (SGOT) 12 U/L (5-34); Albumin 3.1 g/dL (3.4-4.8); Alkaline Phosphatase 77 U/L (40-110); Anion Gap 16 mmol/L (10-20); BUN (Urea Nitrogen) 50 mg/dL (9.8-20.1); Bilirubin, Total 0.2 mg/dL (0.2-1.2); Calc. Creatinine Clearance 44 mL/min (70-130); Calcium 9.5 mg/dL (7.8-10.44); Carbon Dioxide 24 mmol/L (23-31); Chloride 95 mmol/L (98-107); Globulin 3.2 g/dL (2.4-3.5); Glucose 177 mg/dL (83-110); Potassium 4.1 mmol/L (3.5-5.1); Protein, Total 6.3 g/dL (5.8-8.1); Sodium 131 mmol/L (136-145)
[2021-03-22] MEDS: Iron, Sodium Ferric Gluconate 250 MG in Sodium Chloride 0.9% 250 ML 250 ML IVPB SCH (10:56)
[2021-03-22] MEDS: HumaLOG 300 UNITS/3 ML VIAL SC PRN ×2 (11:30→18:05)
[2021-03-22] MEDS ORDERED: DOBUTamine 500 mg/250 ml 250 ML IVPB SCH (14:35)
[2021-03-22] MEDS: Lantus 1000 UNITS/10 ML VIAL SC SCH (21:32)
[2021-03-22] MEDS: Metolazone 5 MG TAB PO SCH (21:33)
[2021-03-22] MEDS: Acetaminophen 325 MG TAB PO PRN (21:33)
[2021-03-22] MEDS ORDERED: diphenhydrAMINE 50 MG/ML VIAL IVP SCH (23:30)
[2021-03-23] MEDS: Furosemide 20 MG/2 ML VIAL SLOW IVP SCH ×2 (05:58→16:37)
[2021-03-23 06:43] LABS: ALT (SGPT) 8 U/L (8-55); AST (SGOT) 11 U/L (5-34); Albumin 3.2 g/dL (3.4-4.8); Alkaline Phosphatase 74 U/L (40-110); Anion Gap 16 mmol/L (10-20); BUN (Urea Nitrogen) 47 mg/dL (9.8-20.1); BUN/Creatinine Ratio 30.13; Bilirubin, Total 0.3 mg/dL (0.2-1.2); Calc. Creatinine Clearance 49 mL/min (70-130); Calcium 9.3 mg/dL (7.8-10.44); Carbon Dioxide 23 mmol/L (23-31); Chloride 95 mmol/L (98-107); Globulin 3.1 g/dL (2.4-3.5); Glucose 110 mg/dL (83-110); Phosphorus 3.8 mg/dL (2.3-4.7); Potassium 3.9 mmol/L (3.5-5.1); Protein, Total 6.3 g/dL (5.8-8.1); Sodium 130 mmol/L (136-145)
[2021-03-23 07:00] LABS: #Lymphocytes 0.9 thou/uL (1.20-3.40); #Monocytes 0.9 thou/uL (0.11-0.59); #Neutrophils 6.9 thou/uL (1.40-6.50); %Basophils 0.3 % (0.0-1.0); %Eosinophils 10.7 % (0.0-10.0); %Lymphocytes 9.3 % (21.0-51.0); %Monocytes 9.1 % (0.0-10.0); %Neutrophils 70.6 % (42.0-75.0); Hemoglobin 8.5 g/dL (12.0-16.0); Mean Corpuscular HGB CONC 31.7 g/dL (32.0-36.0); Mean Corpuscular Volume 85.1 fL (78.0-98.0); Mean Platelet Volume 7.6 fL (7.4-10.4); Platelet Count 402 thou/uL (130-400); RBC Distribution Width 16.9 % (11.5-14.5); Red Blood Cell (RBC) Count 3.15 mill/uL (4.20-5.40); White Blood Cell (WBC) Count 9.7 thou/uL (4.8-10.8)
[2021-03-23] MEDS: Famotidine 20 MG TAB PO SCH (08:23)
[2021-03-23] MEDS: Enoxaparin Sodium 30 MG/0.3 ML SYRINGE SC SCH (08:23)
[2021-03-23] MEDS: Ferrous Sulfate 325 MG TAB PO SCH ×2 (08:23→16:37)
[2021-03-23] MEDS: hydrALAZINE 25 MG TAB PO SCH ×3 (08:23→20:50)
[2021-03-23] MEDS: Folic Acid 1 MG TAB PO SCH (08:23)
[2021-03-23] MEDS: Clopidogrel Bisulfate 75 MG TAB PO SCH (08:23)
[2021-03-23] MEDS: Polyethylene Glycol 3350 17 GM Packet PO SCH (08:24)
[2021-03-23] MEDS: NIFEdipine XL 30 MG TAB PO SCH (08:24)
[2021-03-23] MEDS: Labetalol 100 MG TAB PO SCH (08:24)
[2021-03-23] MEDS: Metolazone 5 MG TAB PO SCH ×2 (08:24→20:52)
[2021-03-23] MEDS: HumaLOG 300 UNITS/3 ML VIAL SC PRN (10:54)
[2021-03-23] MEDS: Iron, Sodium Ferric Gluconate 250 MG in Sodium Chloride 0.9% 250 ML 250 ML IVPB SCH (10:54)
[2021-03-23] MEDS: Carvedilol 25 MG TAB PO SCH (17:44)
[2021-03-23] MEDS: Atorvastatin Calcium 40 MG TAB PO SCH (20:50)
[2021-03-23] MEDS: Lantus 1000 UNITS/10 ML VIAL SC SCH (20:51)
[2021-03-24] MEDS ORDERED: Calcium Carbonate 500 MG ChewTAB PO PRN (00:23)
[2021-03-24] MEDS: Furosemide 20 MG/2 ML VIAL SLOW IVP SCH ×2 (05:15→13:38)
[2021-03-24 05:26] LABS: ALT (SGPT) Less than 7 U/L (8-55); AST (SGOT) 11 U/L (5-34); Albumin 3.3 g/dL (3.4-4.8); Alkaline Phosphatase 76 U/L (40-110); Anion Gap 16 mmol/L (10-20); BUN (Urea Nitrogen) 35 mg/dL (9.8-20.1); BUN/Creatinine Ratio 25.74; Bilirubin, Total 0.3 mg/dL (0.2-1.2); Calc. Creatinine Clearance 55 mL/min (70-130); Calcium 9.5 mg/dL (7.8-10.44); Carbon Dioxide 24 mmol/L (23-31); Chloride 96 mmol/L (98-107); Globulin 3.1 g/dL (2.4-3.5); Glucose 109 mg/dL (83-110); Potassium 3.6 mmol/L (3.5-5.1); Protein, Total 6.4 g/dL (5.8-8.1); Sodium 132 mmol/L (136-145)
[2021-03-24] MEDS: Acetaminophen 325 MG TAB PO PRN ×2 (06:42→20:57)
[2021-03-24 07:20] LABS: #Eosinphils 1.4 thou/uL (0.0-0.7); #Neutrophils 9.8 thou/uL (1.40-6.50); %Basophils 0.3 % (0.0-1.0); %Eosinophils 10.6 % (0.0-10.0); %Lymphocytes 7.7 % (21.0-51.0); %Monocytes 7.5 % (0.0-10.0); %Neutrophils 73.8 % (42.0-75.0); Hemoglobin 9.6 g/dL (12.0-16.0); Mean Corpuscular HGB CONC 31.2 g/dL (32.0-36.0); Mean Corpuscular Hemoglobin 26.6 pg (27.0-31.0); Mean Corpuscular Volume 85.1 fL (78.0-98.0); Mean Platelet Volume 6.9 fL (7.4-10.4); Platelet Count 516 thou/uL (130-400); Red Blood Cell (RBC) Count 3.62 mill/uL (4.20-5.40); White Blood Cell (WBC) Count 13.2 thou/uL (4.8-10.8)
[2021-03-24] MEDS: Enoxaparin Sodium 40 MG/0.4 ML SYRINGE SC SCH (08:41)
[2021-03-24] MEDS: hydrALAZINE 25 MG TAB PO SCH ×3 (08:42→20:56)
[2021-03-24] MEDS: NIFEdipine XL 30 MG TAB PO SCH (08:42)
[2021-03-24] MEDS: Ferrous Sulfate 325 MG TAB PO SCH ×2 (08:42→16:11)
[2021-03-24] MEDS: Metolazone 5 MG TAB PO SCH ×2 (08:43→20:57)
[2021-03-24] MEDS: Folic Acid 1 MG TAB PO SCH (08:43)
[2021-03-24] MEDS: Aspirin 81 mg Enteric Coated Tablet PO SCH (08:43)
[2021-03-24] MEDS: Famotidine 20 MG TAB PO SCH (08:43)
[2021-03-24] MEDS: Ezetimibe 10 MG TAB PO SCH (08:43)
[2021-03-24] MEDS: Carvedilol 25 MG TAB PO SCH ×2 (08:43→16:11)
[2021-03-24] MEDS: Polyethylene Glycol 3350 17 GM Packet PO SCH (08:51)
[2021-03-24] MEDS: HumaLOG 300 UNITS/3 ML VIAL SC PRN ×2 (11:19→17:53)
[2021-03-24] MEDS ORDERED: diphenhydrAMINE 25 MG CAP PO SCH (14:00)
[2021-03-24 14:21] VITALS: BMI 39.7
[2021-03-24] MEDS: Atorvastatin Calcium 40 MG TAB PO SCH (20:55)
[2021-03-24] MEDS: Lantus 1000 UNITS/10 ML VIAL SC SCH (20:56)
[2021-03-24] MEDS: diphenhydrAMINE 25 MG CAP PO PRN (23:55)
[2021-03-25 04:56] LABS: #Eosinphils 1.1 thou/uL (0.0-0.7); #Lymphocytes 1.1 thou/uL (1.20-3.40); #Monocytes 0.8 thou/uL (0.11-0.59); #Neutrophils 8.2 thou/uL (1.40-6.50); %Basophils 0.4 % (0.0-1.0); %Eosinophils 10.1 % (0.0-10.0); %Lymphocytes 9.8 % (21.0-51.0); %Monocytes 7.4 % (0.0-10.0); %Neutrophils 72.3 % (42.0-75.0); Hemoglobin 8.9 g/dL (12.0-16.0); Mean Corpuscular HGB CONC 31.6 g/dL (32.0-36.0); Mean Corpuscular Hemoglobin 27.2 pg (27.0-31.0); Mean Corpuscular Volume 86.2 fL (78.0-98.0); Mean Platelet Volume 6.8 fL (7.4-10.4); Platelet Count 492 thou/uL (130-400); RBC Distribution Width 17.3 % (11.5-14.5); Red Blood Cell (RBC) Count 3.28 mill/uL (4.20-5.40); White Blood Cell (WBC) Count 11.3 thou/uL (4.8-10.8)
[2021-03-25] MEDS: Furosemide 20 MG/2 ML VIAL SLOW IVP SCH (05:25)
[2021-03-25 05:26] LABS: ALT (SGPT) Less than 7 U/L (8-55); AST (SGOT) 11 U/L (5-34); Albumin 3.5 g/dL (3.4-4.8); Alkaline Phosphatase 75 U/L (40-110); Anion Gap 12 mmol/L (10-20); BUN (Urea Nitrogen) 38 mg/dL (9.8-20.1); Bilirubin, Total 0.3 mg/dL (0.2-1.2); Calc. Creatinine Clearance 49 mL/min (70-130); Calcium 9.4 mg/dL (7.8-10.44); Carbon Dioxide 30 mmol/L (23-31); Chloride 95 mmol/L (98-107); Phosphorus 4.8 mg/dL (2.3-4.7); Potassium 3.3 mmol/L (3.5-5.1); Protein, Total 6.5 g/dL (5.8-8.1); Sodium 134 mmol/L (136-145)
[2021-03-25 05:30] LABS: Glucose 47 mg/dL (83-110)
[2021-03-25] MEDS: NIFEdipine XL 30 MG TAB PO SCH (08:51)
[2021-03-25] MEDS: Enoxaparin Sodium 40 MG/0.4 ML SYRINGE SC SCH (08:51)
[2021-03-25] MEDS: Ezetimibe 10 MG TAB PO SCH (08:51)
[2021-03-25] MEDS: Aspirin 81 mg Enteric Coated Tablet PO SCH (08:51)
[2021-03-25] MEDS: Metolazone 5 MG TAB PO SCH (08:51)
[2021-03-25] MEDS: hydrALAZINE 25 MG TAB PO SCH ×3 (08:51→21:11)
[2021-03-25] MEDS: Folic Acid 1 MG TAB PO SCH (08:52)
[2021-03-25] MEDS: Famotidine 20 MG TAB PO SCH (08:52)
[2021-03-25] MEDS: Carvedilol 25 MG TAB PO SCH ×2 (08:53→16:23)
[2021-03-25] MEDS: diphenhydrAMINE 25 MG CAP PO PRN ×2 (08:53→21:18)
[2021-03-25] MEDS: Ferrous Sulfate 325 MG TAB PO SCH ×2 (08:53→16:23)
[2021-03-25] MEDS: Potassium Chloride 20 MEQ TAB PO SCH ×2 (08:53→09:08)
[2021-03-25] MEDS: Polyethylene Glycol 3350 17 GM Packet PO SCH (09:08)
[2021-03-25] MEDS ORDERED: Dextrose 5% in Water 1,000 ML IV PRN (09:11)
[2021-03-25] MEDS ORDERED: Dextrose 50% Abboject 50 ML SYRINGE SLOW IVP PRN (09:11)
[2021-03-25] MEDS ORDERED: HumaLOG 300 UNITS/3 ML VIAL SC PRN ×2 (09:11)
[2021-03-25] MEDS ORDERED: Magnesium 2 GM/50 ML 2 GM in Premix Bag 1 BAG IVPB SCH (13:30)
[2021-03-25] MEDS ORDERED: Lantus 1000 UNITS/10 ML VIAL SC SCH (21:00)
[2021-03-25] MEDS: Atorvastatin Calcium 40 MG TAB PO SCH (21:10)
[2021-03-26 05:03] LABS: Albumin 3.4 g/dL (3.4-4.8); Anion Gap 15 mmol/L (10-20); BUN (Urea Nitrogen) 34 mg/dL (9.8-20.1); BUN/Creatinine Ratio 25.95; Calc. Creatinine Clearance 57 mL/min (70-130); Calcium 8.8 mg/dL (7.8-10.44); Carbon Dioxide 25 mmol/L (23-31); Chloride 95 mmol/L (98-107); Glucose 121 mg/dL (83-110); Phosphorus 4.1 mg/dL (2.3-4.7); Potassium 4.4 mmol/L (3.5-5.1); Sodium 131 mmol/L (136-145)
[2021-03-26 05:10] LABS: #Eosinphils 1.1 thou/uL (0.0-0.7); #Lymphocytes 0.9 thou/uL (1.20-3.40); #Monocytes 0.6 thou/uL (0.11-0.59); #Neutrophils 7.2 thou/uL (1.40-6.50); %Basophils 0.3 % (0.0-1.0); %Eosinophils 10.9 % (0.0-10.0); %Lymphocytes 9.5 % (21.0-51.0); %Neutrophils 73.3 % (42.0-75.0); Hemoglobin 8.7 g/dL (12.0-16.0); Mean Corpuscular HGB CONC 30.6 g/dL (32.0-36.0); Mean Corpuscular Hemoglobin 26.5 pg (27.0-31.0); Mean Corpuscular Volume 86.6 fL (78.0-98.0); Mean Platelet Volume 6.7 fL (7.4-10.4); Platelet Count 451 thou/uL (130-400); RBC Distribution Width 17.5 % (11.5-14.5); Red Blood Cell (RBC) Count 3.27 mill/uL (4.20-5.40); White Blood Cell (WBC) Count 9.8 thou/uL (4.8-10.8)
[2021-03-26] MEDS ORDERED: Furosemide 40 MG TAB PO SCH (07:30)
[2021-03-26] MEDS: Potassium Chloride 10 MEQ TAB PO SCH ×2 (08:50→15:23)
[2021-03-26] MEDS: Ferrous Sulfate 325 MG TAB PO SCH ×2 (08:50→15:24)
[2021-03-26] MEDS: NIFEdipine XL 30 MG TAB PO SCH (08:50)
[2021-03-26] MEDS: Aspirin 81 mg Enteric Coated Tablet PO SCH (08:50)
[2021-03-26] MEDS: hydrALAZINE 25 MG TAB PO SCH ×2 (08:50→15:23)
[2021-03-26] MEDS: Ezetimibe 10 MG TAB PO SCH (08:50)
[2021-03-26] MEDS: Enoxaparin Sodium 40 MG/0.4 ML SYRINGE SC SCH (08:50)
[2021-03-26] MEDS: Famotidine 20 MG TAB PO SCH (08:51)
[2021-03-26] MEDS: Folic Acid 1 MG TAB PO SCH (08:51)
[2021-03-26] MEDS: Carvedilol 25 MG TAB PO SCH ×2 (08:51→15:23)
[2021-03-26 16:23] VITALS: BP 163/79; TEMP 97.8
== END 2021-03-26 16:20 | disposition home health service (06) | DRG 291 ==
LOC: ERS 08:11 → CCU 12:59 → 2NO 03-17 15:20
PROVIDERS: ADMIT Internal Medicine; ATTEND Internal Medicine
PROC: 5A09557 Assistance with Respiratory Ventilation, Greater than 96 Consecutive Hours, Continuous Positive Airway Pressure (ICD-10-PCS; principal; 2021-03-14)
DX: I13.0 Hypertensive heart and chronic kidney disease with heart failure and stage 1 through stage 4 chronic kidney disease, or unspecified chronic kidney disease (principal); I50.33 Acute on chronic diastolic (congestive) heart failure; J96.01 Acute respiratory failure with hypoxia; G92 Toxic encephalopathy; I16.1 Hypertensive emergency; N17.9 Acute kidney failure, unspecified; E66.2 Morbid (severe) obesity with alveolar hypoventilation; E22.2 Syndrome of inappropriate secretion of antidiuretic hormone; N18.4 Chronic kidney disease, stage 4 (severe); E11.22 Type 2 diabetes mellitus with diabetic chronic kidney disease; E87.6 Hypokalemia; D63.1 Anemia in chronic kidney disease; I34.0 Nonrheumatic mitral (valve) insufficiency; I25.110 Atherosclerotic heart disease of native coronary artery with unstable angina pectoris; E78.5 Hyperlipidemia, unspecified; D50.9 Iron deficiency anemia, unspecified; J44.9 Chronic obstructive pulmonary disease, unspecified; K59.00 Constipation, unspecified; E87.5 Hyperkalemia; E83.42 Hypomagnesemia; E11.649 Type 2 diabetes mellitus with hypoglycemia without coma; T40.2X5A Adverse effect of other opioids, initial encounter; Z88.5 Allergy status to narcotic agent; Z88.2 Allergy status to sulfonamides; Z91.018 Allergy to other foods; Z79.4 Long term (current) use of insulin; Z79.899 Other long term (current) drug therapy; Z79.82 Long term (current) use of aspirin; Z90.710 Acquired absence of both cervix and uterus; Z90.49 Acquired absence of other specified parts of digestive tract; Z68.39 Body mass index [BMI] 39.0-39.9, adult
CPT/HCPCS: 0240U; 36415; 36416; 36600; 71045; 71275; 80048; 80053; 80069; 82533; 82728; 82805; 83540; 83735; 83880; 84443; 84484; 85025; 85027; 85379; 93005; 93970; 94640; 94660; 96365; 96366; 96375; J1200; J1250; J1650; J1815; J1940; J2405; J2916; J3475; J7050; J7620; P9047; Q0163; Q5105; Q9967; S0028